=== PATIENT | female | born 1970 | race African-American/Black ===

== ENCOUNTER 2016-09-22 19:34 | Inpatient (IN) ==
[2016-09-22] MEDS ORDERED: PANTOPRAZOLE 40 MG VIAL IV STA (20:42)
[2016-09-22] MEDS ORDERED: ALUM/MAG/SIMETH/LIDO VISC 1:1 30 ML BOTTLE PO STA (20:42)
[2016-09-22] MEDS ORDERED: ASPIRIN 325 MG TABLET PO STA (20:42)
[2016-09-22] MEDS ORDERED: ONDANSETRON 4 MG/2 ML VIAL IV STA (20:42)
[2016-09-22] MEDS ORDERED: NITROGLYCERIN 2% OINT 1 INCH/GM PACK TOP STA (20:42)
[2016-09-22] MEDS ORDERED: PANTOPRAZOLE 40 MG VIAL IV ONE (20:48)
[2016-09-22] MEDS ORDERED: NITROGLYCERIN 2% OINT 1 INCH/GM PACK TOP ONE (20:48)
[2016-09-22 20:49] LABS: Basophils # 0.1 10*3/uL (0.0-0.2); Basophils % 0.5 % (0.0-0.8); Eosinophils # 0.1 10*3/uL (0.0-0.87); Eosinophils % 0.7 % (0.00-10.9); Hematocrit 43.6 VOL% (35.7-47.0); Hemoglobin 14.3 GM/DL (12.0-16.0); Immature Granulocytes % 0.8 %; Immature Granulocytes Absolute 0.09 #; Lymphocytes # 2.7 10*3/uL (1.4-4.0); Lymphocytes % 23.5 % (21.3-54.2); Mean Corpuscular HGB Conc 32.8 GM/DL (32-36); Mean Corpuscular Hemoglobin 35 PG (27-34); Mean Corpuscular Volume 107.9 FL (87-102); Mean Platelet Volume 11.2 FL (9.6-12.0); Monocytes # 0.9 10*3/uL (0.11-0.8); Monocytes % 7.8 % (1.7-12.7); Neutrophils # 7.7 10*3/uL (1.4-7.4); Neutrophils % 66.7 % (38.7-73.9); Platelet Count 256 T/CUMM (130-400); Red Blood Count 4.04 MC/CUMM (3.8-5.5); Red Cell Distribution Width 14.1 % (9.3-17.3); White Blood Count 11.5 T/CUMM (4-12)
[2016-09-22] MEDS ORDERED: ONDANSETRON 4 MG/2 ML VIAL ONE (20:49)
[2016-09-22] MEDS ORDERED: ALUM/MAG/SIMETH/LIDO VISC 1:1 30 ML BOTTLE PO ONE (20:49)
[2016-09-22] MEDS ORDERED: ASPIRIN 325 MG TABLET ONE (20:49)
[2016-09-22 20:54] LABS: INR 1.1; PT Patient Result 11.4 SECS
--- NOTE | 2016-09-22 21:02 | Emergency Department Note ---
IJohnson Emily, am scribing for, and in the presence of, Brian Quiroz MD 20: 51. IGabriella Charles R, MD, personally performed the services described in this documentation, ascribed by Loulou Ornelas in my presence, and it is both accurate and complete . Arrival - Arrival Chief Complaint: Chest Pain Stated Complaint: chest pain,sob ED Nursing Triage Note: Patient to triage with c/o CP and SOB since this morning before dialysis. Patient states the pain is located in her epigastric area and radiates up chest to her back and feels like indigestion but when the SOB started she got worried. Patient states she did get down to her dry weight today at dialysis and has taken tums and prilosec with no relief. Patient does not make urine anymore. Mode of Arrival: Wheelchair Limitations: No Limitations Source: Patient Time Seen by Provider: 09/22/16 20:17 - History of Present Illness HPI Narrative: Pt is a 46 y/o female who came to ED with c/o epigastric pain that started yesterday after eating a quarter pounder cheeseburger at 6pm. She notes taking a Prilosec 10mg (she nml takes daily for GERD), that gave no relief. When getting to dialysis this morning, then pain continued and was given 2 Tums, with no relief as well. Pt notes she became concerned when SOB started. Pt has associated sxs of burning in chest, bad taste in mouth, nausea, excessive belching but denies vomiting or swelling in lower extremities. Pt makes no urine. Onset (ago): day(s) Consistency: constant Severity: mild, moderate Severity scale (1-10): 4 Quality: aching, burning Date of Last Menstrual Period: "next week" Allergies/Adverse Reactions: Allergies Allergy/AdvReac Type Severity Reaction Status Date / Time morphine Allergy Mild Nausea Verified 09/22/16 19:54 Home Medications: Home Medications Medication Instructions Recorded Confirmed Type Zolpidem [Ambien] 5 mg PO BEDTIME PRN 06/16/15 09/22/16 History Albuterol Inhaler [Proventil 2 puff INH Q6H PRN #1 inhaler 11/23/15 09/22/16 Rx Inhaler] Amlodipine Besylate 5 mg PO QAM 01/25/16 09/22/16 History Atorvastatin [Lipitor] 10 mg PO QPM 01/25/16 09/22/16 History Phenytoin ER Cap [Dilantin Cap] 100 mg PO BEDTIME 02/01/16 09/22/16 History Calcium Acetate [Calcium Acetate] 1,334 mg PO BEDTIME 03/25/16 09/22/16 History Calcium Acetate [Calcium Acetate] 2,001 mg PO BID W/MEALS 03/25/16 09/22/16 History Calcium Carbonate/Vitamin D3 1 each PO QAM 04/29/16 09/22/16 History [Calcium 600-Vit D3 800 Tablet] Omeprazole 20 mg PO QPM 07/14/16 09/22/16 History Phenytoin ER Cap [Dilantin Cap] 100 mg PO TID #90 capsule 07/14/16 09/22/16 Rx Prorenal D 1 tablet PO QPM 07/14/16 09/22/16 History Sertraline HCl [Zoloft] 50 mg PO QAM 07/14/16 09/22/16 History Review of System - Review of System 12 point system: reviewed and no additional remarkable complaints except as stated - Review of System Constitutional: Absent: chills, fever Respiratory: Absent: respiratory distress Cardiovascular: Absent: chest pain, orthopnea, edema Gastrointestinal: Present: abdominal pain (epigastric), nausea, other (no urine output; excessive belching). Absent: vomiting Musculoskeletal: Absent: arm pain, leg pain, neck pain Skin: Absent: rash Neurological: Absent: headache Medical,Surgical,& Family Hx - Medical History Cardio: History of: CHF, Hypertension Neurology: History of: Brain Aneurysm (CLAMPED IN 2013), Migraine, Peripheral Neuropathy, Seizures Endocrine: No history of: Diabetes Mellitus (NIDDM) Rheumatology: History of;: Rheumatoid Arthritis Respiratory: History of: Asthma, Bronchitis, Obstructive Sleep Apnea (CPAP), Respiratory Problems (SHORTNESS OF BREATH) Renal: History of: Dialysis (, , sat), Renal Failure Gastrointestinal: History of: GERD Musculoskeletal: History of: Back/Neck Problems (LOWER BACK PAINS) Reproductive: History of: Complication (1 MISCARRIAGE) - Surgical History Neurologic Surgeries: Surgical HX of: Brain Aneurysm (CLAMPED IN 2013), Neurologic Surgery (aneurysm) HEENT Surgeries: Surgical HX of: Thyroid Surgery (2014) Abdominal Surgeries: Surgical HX of: Colonoscopy Reproductive Surgeries: Surgical HX of;: Tubal Ligation Orthopedic Surgeries: Surgical HX of;: Implanted Devices (CATHETER RIGHT SUBCLAVIAN, GRAFT RIGHT UPPER ARM) - Family History Family History: Reports;: Family Diabetes - Social History Smoking Status: Never smoker Frequency of Alcohol Use: None Type of Drug Use: None Functional capacity: independent ambulation Exam Vital Signs: Vital Signs Temperature 97.7 F 09/22/16 19:43 Pulse Rate 85 09/22/16 20:20 Respiratory Rate 18 09/22/16 20:20 Blood Pressure 67/49 09/22/16 19:43 O2 Sat by Pulse Oximetry 95 09/22/16 19:43 - General General appearance: alert, in no apparent distress - Head Head exam: Present: atraumatic, normocephalic - Eye Eye exam: Present: PERRL, EOMI - ENT ENT exam: Present: mucous membranes moist. Absent: mucous membranes dry - Neck Neck exam: Present: full ROM. Absent: tenderness - Chest Chest inspection: Present: symmetric chest wall rise. Absent: tenderness - Respiratory Respiratory exam: Present: normal lung sounds bilaterally. Absent: respiratory distress - Cardiovascular Cardiovascular exam: Present: regular rate, normal rhythm, normal heart sounds - Abdominal Exam Abdominal exam: Present: soft, tenderness (reproducible epigastric tenderness). Absent: distention, guarding, rebound - Extremities Exam Extremities exam: Present: full ROM, pedal edema (+1). Absent: tenderness - Neurological Exam Neurological exam: Present: alert, oriented X3, CN II-XII intact. Absent: motor sensory deficit - Psychiatric Psychiatric exam: Present: normal affect, normal mood - Skin Skin exam: Present: warm, dry Course Course Narrative: Pt was informed that her Prilosec 10mg dosage needs to be increased to 40mg, to help relieve her burning sensation. She was also instructed to stop eating fast food meals or fried for preventative measures to help keep her reflux under control. - Reevaluation(s) Reevaluation #1: Patient still having chest pain cardiac enzymes 2 are negative will admit her to the hospital for observation Time: 00:40 - Consultations Consultation #1: Hospitalist will admit patient Time: 00:40 Results - Labs CBC & BMP: 09/22/16 20:02 09/22/16 20:02 Lab Results: I have reviewed the patients labs Labs: Laboratory Tests 09/22/16 20:02 Sodium 133 L Chloride 91 L Anion Gap 16.8 H BUN 31 H Creatinine 7.50 H BUN/Creatinine Ratio 4.00 L Calculated Osmolality 272.4 L Calcium 10.2 H Total Protein 9.7 H Globulin 6.0 H Albumin/Globulin Ratio 0.6 L Laboratory Tests 09/22/16 20:02 B-Natriuretic Peptide 82 Laboratory Tests 09/22/16 22:38 Troponin I < 0.015 Disposition Clinical Impression: Atypical chest pain, Morbid obesity, ESRD (end stage renal disease) on dialysis Case discussed with: patient Disposition: Still a Patient Condition: Stable Time of Disposition: 00:40
[2016-09-22 21:03] LABS: Albumin 3.7 G/DL (3.4-5.0); Bilirubin,Total 0.5 MG/DL (0.2-1.0); Calcium 10.2 MG/DL (8.5-10.1); Magnesium 2.1 MG/DL (1.8-2.4); Osmolality,Calculated 272.4 MOS/KG (273-304); Potassium 3.8 MMOL/L (3.5-5.1); Total Protein 9.7 G/DL (6.4-8.3)
[2016-09-23] MEDS ORDERED: ALBUTEROL 2.5 MG/3 ML NEB RESP TX SCH (01:55)
[2016-09-23] MEDS ORDERED: NITROGLYCERIN SL 0.4 MG TABLET SL PRN (01:57)
--- NOTE | 2016-09-23 02:04 | Hospitalist History & Physical ---
Assessment and Plan (1) Atypical chest pain Status: Acute Assessment and plan: Patient has atypical chest pain more like like epigastric pain of GI origin I will start on Protonix. Due to her risk factors I will do check another troponin with morning labs. Will check repeat hemoglobin hematocrit also. Her lipase level was within normal limit Current Visit: Yes (2) ESRD on hemodialysis Status: Chronic Assessment and plan: Renal to be consulted and the patient stay in the hospital and required dialysis Current Visit: No (3) Epileptic seizure Status: Acute Assessment and plan: Continue phenytoin Current Visit: No (4) Hypertension Status: Chronic Assessment and plan: Although patient has history of hypertension, her blood pressure has been low here this could be due to nitroglycerin ointment or just because she had been getting bleeding from forearm blood pressure cuff. Patient otherwise awake alert and oriented. Will keep follow I will hold her home blood pressure medication. Also will remove nitroglycerin ointment. If the blood pressure is still low I will give some fluid patient is postdialysis and had 3 L ultrafiltration according to her Current Visit: No History of Present Illness Chief complaint: Epigastric pain History of present illness: Ms. Pruett is a 46 year old female with history of multiple medical problems including hypertension, end-stage renal disease, arthritis, sleep apnea not using CPAP at present asthma and obesity. She came to the ER with complaint of pain pointed out to the epigastric area started yesterday. She is on dialysis via left upper extremity AV fistula and on hemodialysis on Saturday and Saturday scheduled. She was dialyzed yesterday but pain started prior to her going to dialysis. The pain is in epigastric area and radiated to the chest associated with the shortness of breath. It felt like "reflux" she took omeprazole and Tums but did not relieve she came to the ER she was given nitroglycerin and also GI cocktail the pain improved. She denies any nausea vomiting diarrhea coughing fever or any other symptoms. She does have pain in left-sided lower abdominal wall due to "rising". In the ER she was also evaluated with the troponin level which was normal at 0.015 WBC count 11.5 and hemoglobin 14.3 hematocrit 43.6 I was called to admit the patient Home Medications Medication Instructions Recorded Confirmed Type Zolpidem [Ambien] 5 mg PO BEDTIME PRN 06/16/15 09/22/16 History Albuterol Inhaler [Proventil 2 puff INH Q6H PRN #1 inhaler 11/23/15 09/22/16 Rx Inhaler] Amlodipine Besylate 5 mg PO QAM 01/25/16 09/22/16 History Atorvastatin [Lipitor] 10 mg PO QPM 01/25/16 09/22/16 History Phenytoin ER Cap [Dilantin Cap] 100 mg PO BEDTIME 02/01/16 09/22/16 History Calcium Acetate [Calcium Acetate] 1,334 mg PO BEDTIME 03/25/16 09/22/16 History Calcium Acetate [Calcium Acetate] 2,001 mg PO BID W/MEALS 03/25/16 09/22/16 History Calcium Carbonate/Vitamin D3 1 each PO QAM 04/29/16 09/22/16 History [Calcium 600-Vit D3 800 Tablet] Omeprazole 20 mg PO QPM 07/14/16 09/22/16 History Phenytoin ER Cap [Dilantin Cap] 100 mg PO TID #90 capsule 07/14/16 09/22/16 Rx Prorenal D 1 tablet PO QPM 07/14/16 09/22/16 History Sertraline HCl [Zoloft] 50 mg PO QAM 07/14/16 09/22/16 History Allergies Allergy/AdvReac Type Severity Reaction Status Date / Time morphine Allergy Mild Nausea Verified 09/22/16 19:54 Medical,Surgical,& Family Hx - Medical History Cardio: History of: CHF, Hypertension Neurology: History of: Brain Aneurysm (CLAMPED IN 2013), Migraine, Peripheral Neuropathy, Seizures Endocrine: No history of: Diabetes Mellitus (NIDDM) Rheumatology: History of;: Rheumatoid Arthritis Respiratory: History of: Asthma, Bronchitis, Obstructive Sleep Apnea (CPAP), Respiratory Problems (SHORTNESS OF BREATH) Renal: History of: Dialysis (, , sat), Renal Failure Gastrointestinal: History of: GERD Musculoskeletal: History of: Back/Neck Problems (LOWER BACK PAINS) Reproductive: History of: Complication (1 MISCARRIAGE) - Surgical History Neurologic Surgeries: Surgical HX of: Brain Aneurysm (CLAMPED IN 2013), Neurologic Surgery (aneurysm) HEENT Surgeries: Surgical HX of: Thyroid Surgery (2014) Abdominal Surgeries: Surgical HX of: Colonoscopy Reproductive Surgeries: Surgical HX of;: Tubal Ligation Orthopedic Surgeries: Surgical HX of;: Implanted Devices (CATHETER RIGHT SUBCLAVIAN, GRAFT RIGHT UPPER ARM) - Family History Family History: Reports;: Family Diabetes - Social History Smoking Status: Never smoker Frequency of Alcohol Use: None Type of Drug Use: None 12 point system: reviewed and no additional remarkable complaints except as stated (Indicated in HPI) Exam - Constitutional Vitals: Period Temp Pulse Resp BP Sys/Dos Santos Pulse Ox Last 24 Hr 97.7 F-97.7 F 85-91 18-22 67-67/49-49 95 General appearance: no acute distress, morbidly obese - Head Head exam: Present: normal inspection, normocephalic, atraumatic - Eye Eye exam: Present: EOMI Pupils: Present: AMIRAH, normal accommodation - ENT ENT exam: Present: normal exam, normal oropharynx - Respiratory Respiratory exam: Present: clear to auscultation bilaterally. Absent: rales, rhonchi, wheezes - Cardiovascular Cardiovascular exam: Present: regular rate and rhythm. Absent: tachycardia - GI/Abdominal GI/Abdominal exam: Present: normal bowel sounds, soft, other. Absent: distended , tenderness - Neurological Exam Neurological exam: Present: alert, oriented X3 - Skin Skin exam: Present: other (This is boiled which is a has busted and has drainage left lower abdominal wall) Results - Labs CBC & BMP: 09/22/16 20:02 09/22/16 20:02 Lab Results: I have reviewed the past 24 hour labs
[2016-09-23 04:39] LABS: Albumin 3.3 G/DL (3.4-5.0); Bilirubin,Total 0.4 MG/DL (0.2-1.0); Calcium 9.3 MG/DL (8.5-10.1); Osmolality,Calculated 274.4 MOS/KG (273-304); Potassium 4.2 MMOL/L (3.5-5.1); Total Protein 8.5 G/DL (6.4-8.3)
--- NOTE | 2016-09-23 05:32 | EKG Report ---
Stationary ECG Study [facility] ER Test Date: 09/22/2016 7:45:18 PM Pat Name: SAHIL CARROLL Department: Room: 128 Gender: F Liquid Compounder: : 1970 Requested by: Brian Owen Order Number: [id number] Reading MD: CHANTEL MORAN Intervals [place] Rate: 88 P: 54 NV: 167 QRS: 1 QRSD: 62 T: 29 QT: 353 QTc: 399 Interpretive Statements SINUS RHYTHM LEFT ATRIAL ABNORMALITY ANTEROSEPTAL INFARCT, PREVIOUSLY CITED Electronically Signed On 09-23-16 16:11:32 CDT by CHANTEL MORAN [email or web address]
[2016-09-23 06:02] LABS: Basophils # 0.1 10*3/uL (0.0-0.2); Basophils % 0.7 % (0.0-0.8); Eosinophils # 0.1 10*3/uL (0.0-0.87); Eosinophils % 0.9 % (0.00-10.9); Hematocrit 39.5 VOL% (35.7-47.0); Hemoglobin 13.2 GM/DL (12.0-16.0); Immature Granulocytes % 0.6 %; Immature Granulocytes Absolute 0.05 #; Lymphocytes # 2.6 10*3/uL (1.4-4.0); Lymphocytes % 29.7 % (21.3-54.2); Mean Corpuscular HGB Conc 33.4 GM/DL (32-36); Mean Corpuscular Hemoglobin 36 PG (27-34); Mean Corpuscular Volume 108.5 FL (87-102); Mean Platelet Volume 10.5 FL (9.6-12.0); Monocytes # 0.8 10*3/uL (0.11-0.8); Monocytes % 9.7 % (1.7-12.7); Neutrophils # 5.1 10*3/uL (1.4-7.4); Neutrophils % 58.4 % (38.7-73.9); Platelet Count 217 T/CUMM (130-400); Red Blood Count 3.64 MC/CUMM (3.8-5.5); Red Cell Distribution Width 13.9 % (9.3-17.3); White Blood Count 8.7 T/CUMM (4-12)
[2016-09-23] MEDS: CLINDAMYCIN 150 MG CAPSULE PO SCH ×3 (06:55→21:54)
[2016-09-23] MEDS: ACETAMINOPHEN 325 MG TABLET PO PRN (06:55)
[2016-09-23] MEDS: ALBUTEROL 2.5 MG/3 ML NEB RESP TX SCH ×3 (07:45→19:46)
[2016-09-23] MEDS ORDERED: SODIUM CHLORIDE 0.9% 500 ML IV ONE ×2 (08:14→11:00)
[2016-09-23] MEDS: CALCIUM ACETATE 667 MG CAPSULE PO SCH ×2 (08:20→21:55)
--- NOTE | 2016-09-23 08:20 | Event Note ---
Chart reviewed and patient examined. 46-year-old black female with atypical chest pain who is hypertensive, has end-stage renal disease on hemodialysis, obesity, sleep apnea with noncompliance of CPAP. She remains relatively hypotensive with systolic blood pressures in the 80s. She is afebrile. Cardiovascular regular rate and rhythm. Lungs clear without rales rhonchi or wheeze. Abdomen is obese soft nontender. She does have a tender indurated area of the lower abdomen with minimal drainage. Extremities without clubbing cyanosis or edema. Patient is been admitted. Will give 500 cc fluid bolus and follow her blood pressures while holding her antihypertensive therapy at this time. Nephrology has been consulted. She has serial cardiac biomarkers which have been negative thus far and cardiology has been consulted as well. This is likely musculoskeletal in etiology and not cardiac in etiology. General surgery has been asked to evaluate lower abdominal wall abscess. She is on IV clindamycin at this time.
[2016-09-23] MEDS: ENOXAPARIN 30 MG/0.3 ML SYRINGE SUBCUT SCH (08:24)
[2016-09-23] MEDS: PANTOPRAZOLE 40 MG TABLET PO SCH (08:24)
[2016-09-23] MEDS: SERTRALINE 50 MG TABLET PO SCH (08:24)
[2016-09-23] MEDS ORDERED: PANTOPRAZOLE 40 MG VIAL IV SCH (09:00)
[2016-09-23] MEDS ORDERED: PHENYTOIN ER 100 MG CAPSULE PO SCH (09:00)
--- NOTE | 2016-09-23 09:08 | Event Note ---
Patient has a lower abdominal wall abscess. There is purulent drainage. It is difficult to assess the full extent of the abscess because of her morbid obesity. This needs drainage under anesthesia. Procedure and risk of been explained and she wishes to proceed. It is unclear if this is a source of her hypotension.
--- NOTE | 2016-09-23 09:44 | XRay Report ---
XR chest 1V portable Indication: Chest pain. Comparison: AP chest 09/20/2016. Technique: Portable AP chest was performed. Findings: Heart size is normal. Pulmonary vasculature appears within normal limits. No significant abnormality of the mediastinal contours demonstrated. Lungs are clear. Bones and soft tissues demonstrate no significant abnormalities. Impression: 1. No evidence of acute pathology. 09/23/2016 9:42 AM PROCEDURE INTERPRETED AT [facility] DEPARTMENT OF RADIOLOGY Final Report Signed by: Dr. Mo Hernandez
--- NOTE | 2016-09-23 12:04 | Cardiology Consult Note ---
History of Present Illness - Data of Consult Patient: new to practice Consult date: 09/23/16 - Consult Narrative History of present illness: Cardiology consult note 46-year-old woman with chronic renal failure admitted with abdominal wall abscess and hypotension. Blood pressure is 80 systolic and she is receiving fluids. Temperature is 97 and she has had no fever recorded. White count 11.5. Chest x-ray shows a normal heart size with no infiltrate or effusion. EKG shows normal sinus rhythm with late transition across precordium and ST-T wave changes. This tracing is unchanged from her previous tracing January 25, 2016. No history of exertional chest pain. The patient does have chronic dyspnea and easy fatigability. She is 5 feet 1 inches tall weighs 245 pounds. The patient has untreated obstructive sleep apnea. She has chronic renal failure and has been on hemodialysis since 2011. She is dialyzed at the [facility] [place] every Saturday and Saturday for 4 hours. The patient makes no urine. She has chronic hypertension takes amlodipine 5 mg daily. She takes atorvastatin for hyperlipidemia. Lifetime non-smoker and nondrinker. She does have a history of seizure disorder and takes Dilantin 400 mg daily. Her last seizure was 3 years ago. She does have GE reflux symptoms and takes Prilosec 20 mg daily. She tries to avoid bedtime snacks. Her mother has hypertension diabetes and is on hemodialysis at age 62. Father from alcoholism in his early 50s. Brother was killed in an MVA at age 12. She has 7 sisters, 3 of them have hypertension Lab data White count 11.5 hemoglobin 14.3 hematocrit 43.6 Platelet count 256,000 sodium 133 potassium 4.2 chloride 94 CO2 31 BUN 40 creatinine 8.30 glucose 86 magnesium 2.1 BNP 82 troponin negative 2. Blood pressure is 84/56 pulse is 86 and regular respirations 20 O2 sat is 97% 2 L early arcus no xanthelasma flat neck veins no carotid bruit decreased breath sounds but clear. rhythm is regular no murmur or gallop no chest wall tenderness to palpation at is morbidly obese. Femoral pulses 2+ and deep distal pulses 2+ no edema Impression Abdominal wall abscess with purulent drainage and hypotension. The patient is morbidly obese and the extent of the abscess cannot be delineated. Chronic renal failure on hemodialysis. She is dialyzed every Saturday and Saturday Untreated obstructive sleep apnea Chronic hypertension Seizure disorder on Dilantin. Last seizure was 3 years ago Lifetime non-smoker and nondrinker Morbid obesity 5 feet 1 inches tall 245 pounds No family history of premature CAD EKG shows sinus rhythm with late transition across her and ST-T wave changes, unchanged from previous tracing January 25, 2016. GE reflux Atypical chest pain not likely be ischemic Plan Normal saline hydration Echo Doppler now Incision and drainage by Dr. Marcano CC: Nikita Kingsley - Home Medications and Allergies Home Medications: Home Medications Medication Instructions Recorded Confirmed Type Zolpidem [Ambien] 5 mg PO BEDTIME PRN 06/16/15 09/22/16 History Albuterol Inhaler [Proventil 2 puff INH Q6H PRN #1 inhaler 11/23/15 09/22/16 Rx Inhaler] Amlodipine Besylate 5 mg PO QAM 01/25/16 09/22/16 History Atorvastatin [Lipitor] 10 mg PO QPM 01/25/16 09/22/16 History Phenytoin ER Cap [Dilantin Cap] 100 mg PO BEDTIME 02/01/16 09/22/16 History Calcium Acetate [Calcium Acetate] 1,334 mg PO BEDTIME 03/25/16 09/22/16 History Calcium Acetate [Calcium Acetate] 2,001 mg PO BID W/MEALS 03/25/16 09/22/16 History Calcium Carbonate/Vitamin D3 1 each PO QAM 04/29/16 09/22/16 History [Calcium 600-Vit D3 800 Tablet] Omeprazole 20 mg PO QPM 07/14/16 09/22/16 History Phenytoin ER Cap [Dilantin Cap] 100 mg PO TID #90 capsule 07/14/16 09/22/16 Rx Prorenal D 1 tablet PO QPM 07/14/16 09/22/16 History Sertraline HCl [Zoloft] 50 mg PO QAM 07/14/16 09/22/16 History Allergies/Adverse Reactions: Allergies Allergy/AdvReac Type Severity Reaction Status Date / Time morphine Allergy Mild Nausea Verified 09/22/16 19:54 Medical,Surgical,& Family Hx - Medical History Cardio: History of: CHF, Hypertension, Cardiovascular Problems (heart cath @ [facility] w/ stent ?) Neurology: History of: Brain Aneurysm (CLAMPED IN 2013), Migraine, Peripheral Neuropathy, Seizures Endocrine: No history of: Diabetes Mellitus (NIDDM) Rheumatology: History of;: Rheumatoid Arthritis Respiratory: History of: Asthma, Bronchitis, Obstructive Sleep Apnea (doesn't wear cpap as ordered), Respiratory Problems (SHORTNESS OF BREATH) Renal: History of: Dialysis (, , sat), Renal Failure (left upper arm fistula ) Gastrointestinal: History of: GERD Musculoskeletal: History of: Back/Neck Problems (LOWER BACK PAINS) Reproductive: History of: Complication (1 MISCARRIAGE) - Surgical History Cardiac Surgeries: Sugical HX of: Cardiac Catheterization (several years ago @ [facility]) Neurologic Surgeries: Surgical HX of: Brain Aneurysm (CLAMPED IN 2013), Neurologic Surgery (aneurysm) HEENT Surgeries: Surgical HX of: Thyroid Surgery (2014) Abdominal Surgeries: Surgical HX of: Colonoscopy Reproductive Surgeries: Surgical HX of;: Tubal Ligation Orthopedic Surgeries: Surgical HX of;: Implanted Devices (CATHETER RIGHT SUBCLAVIAN, GRAFT RIGHT UPPER ARM) - Family History Family History: Reports;: Family Diabetes (mom (DM & HD)), Family Hypertension ( mom) Denies;: Family Anesthesia Reaction, Family Cancer, Family Heart Disease, Family Hematology, Family Psychiatric Problems, Family Stroke, Additional Family History - Social History Smoking Status: Never smoker Frequency of Alcohol Use: None Type of Drug Use: None Physical Examination Vital Signs Temp Pulse Resp BP Pulse Ox 97.7 F 91 H 22 67/49 95 09/22/16 19:43 09/22/16 19:43 09/22/16 19:43 09/22/16 19:43 09/22/16 19:43 Result/EKG - Labs CBC & BMP: 09/23/16 05:56 09/23/16 03:59 Labs: Laboratory Results - last 24 hr 09/22/16 09/22/16 09/22/16 20:02 20:02 20:02 WBC RBC Hgb Hct MCV MCH MCHC RDW Plt Count MPV Neut % (Auto) Lymph % (Auto) [place] % (Auto) Eos % (Auto) Baso % (Auto) Neut # (Auto) Lymph # (Auto) [place] # (Auto) Eos # (Auto) Baso # (Auto) Immature Gran % Nucleated RBC % Immature Gran # Nucleated RBCs # Immature Plt Fraction INR 1.1 PT Patient/Control Mix 11.4 Sodium 133 L Potassium 3.8 Chloride 91 L Carbon Dioxide 29 Anion Gap 16.8 H BUN 31 H Creatinine 7.50 H GFR Calculation 8 BUN/Creatinine Ratio 4.00 L Glucose 93 Calculated Osmolality 272.4 L Calcium 10.2 H Magnesium 2.1 Total Bilirubin 0.50 AST 17 ALT 17 Alkaline Phosphatase 84 Troponin I < 0.015 B-Natriuretic Peptide Total Protein 9.7 H Albumin 3.7 Globulin 6.0 H Albumin/Globulin Ratio 0.6 L Lipase 330.0 09/22/16 09/22/16 09/22/16 20:02 20:02 22:38 WBC 11.5 D RBC 4.04 Hgb 14.3 Hct 43.6 MCV 107.9 H MCH 35 H MCHC 32.8 RDW 14.1 Plt Count 256 D MPV 11.2 Neut % (Auto) 66.7 Lymph % (Auto) 23.5 [place] % (Auto) 7.8 Eos % (Auto) 0.7 Baso % (Auto) 0.5 Neut # (Auto) 7.7 H Lymph # (Auto) 2.7 [place] # (Auto) 0.9 H Eos # (Auto) 0.1 Baso # (Auto) 0.1 Immature Gran % 0.8 Nucleated RBC % 0.0 Immature Gran # 0.09 Nucleated RBCs # 0.00 Immature Plt Fraction 0.0 INR PT Patient/Control Mix Sodium Potassium Chloride Carbon Dioxide Anion Gap BUN Creatinine GFR Calculation BUN/Creatinine Ratio Glucose Calculated Osmolality Calcium Magnesium Total Bilirubin AST ALT Alkaline Phosphatase Troponin I < 0.015 B-Natriuretic Peptide 82 Total Protein Albumin Globulin Albumin/Globulin Ratio Lipase 09/23/16 09/23/16 09/23/16 03:59 03:59 05:56 WBC 8.7 RBC 3.64 L Hgb 13.2 Hct 39.5 MCV 108.5 H MCH 36 H MCHC 33.4 RDW 13.9 Plt Count 217 MPV 10.5 Neut % (Auto) 58.4 Lymph % (Auto) 29.7 [place] % (Auto) 9.7 Eos % (Auto) 0.9 Baso % (Auto) 0.7 Neut # (Auto) 5.1 Lymph # (Auto) 2.6 [place] # (Auto) 0.8 Eos # (Auto) 0.1 Baso # (Auto) 0.1 Immature Gran % 0.6 Nucleated RBC % 0.0 Immature Gran # 0.05 Nucleated RBCs # 0.00 Immature Plt Fraction 0.0 INR PT Patient/Control Mix Sodium 133 L Potassium 4.2 Chloride 94 L Carbon Dioxide 31 Anion Gap 12.2 BUN 40 H Creatinine 8.30 H GFR Calculation 7 BUN/Creatinine Ratio 4.00 L Glucose 86 Calculated Osmolality 274.4 Calcium 9.3 Magnesium Total Bilirubin 0.40 AST 15 ALT 16 Alkaline Phosphatase 78 Troponin I < 0.015 B-Natriuretic Peptide Total Protein 8.5 H Albumin 3.3 L Globulin 5.2 H Albumin/Globulin Ratio 0.6 L Lipase
[2016-09-23] MEDS ORDERED: BUPIVACAINE 0.25% /EPI 10 ML VIAL ONE (12:55)
[2016-09-23] MEDS ORDERED: LIDOCAINE 1%/EPI INJ 20 ML VIAL ONE (12:55)
--- NOTE | 2016-09-23 13:23 | Operative Note ---
Date of procedure: 09/23/16 Pre-op diagnosis: Abdominal wall abscess Post-op diagnosis: same Procedure: Incision and drainage of complex subcutaneous abdominal wall lower midline abscess Findings and technique: After informed consent was obtained patient brought the operating room placed in supine position. After IV sedation was administered the patient's abdomen was prepped and draped in usual sterile fashion. Local anesthesia was infiltrated and a small transverse incision made over the area of fluctuance and the subcutaneous abscess entered. This was limited to the subcutaneous tissues just beneath the skin and went about 1.5 cm deep. This was digitally explored to break up any loculations and copiously irrigated and cultured. Wound was then packed open with iodoform gauze and sterile dressing applied. Anesthesia: MAC, local Surgeon / Physician: Richard Marcano III. Estimated blood loss: minimal Specimens: other (Cultures) Condition: stable Disposition: PACU Results - Labs CBC & BMP: 09/23/16 05:56 09/23/16 03:59 Discharge Plan - Discharge Medications No Action Zolpidem [Ambien] 5 mg PO BEDTIME PRN PRN Reason: Insomnia Albuterol Inhaler [Proventil Inhaler] 2 puff INH Q6H PRN #1 inhaler PRN Reason: Shortness Of Breath/Wheezing Atorvastatin [Lipitor] 10 mg PO QPM Amlodipine Besylate 5 mg PO QAM Calcium Acetate [Calcium Acetate] 2,001 mg PO BID W/MEALS Calcium Acetate [Calcium Acetate] 1,334 mg PO BEDTIME Sertraline HCl [Zoloft] 50 mg PO QAM Prorenal D 1 tablet PO QPM Phenytoin ER Cap [Dilantin Cap] 100 mg PO TID #90 capsule Phenytoin ER Cap [Dilantin Cap] 100 mg PO BEDTIME Calcium Carbonate/Vitamin D3 [Calcium 600-Vit D3 800 Tablet] 1 each PO QAM Omeprazole 20 mg PO QPM - Follow Up or Referral - Forms/Instructions
[2016-09-23] MEDS ORDERED: PROPOFOL 200 MG/20 ML VIAL IV ONE (13:37)
[2016-09-23] MEDS ORDERED: fentaNYL 100 MCG/2 ML VIAL ONE (13:38)
[2016-09-23] MEDS ORDERED: MIDAZOLAM 2 MG/2 ML VIAL ONE (13:38)
--- NOTE | 2016-09-23 13:52 | Nephrology Consult Note ---
History of Present Illness Chief complaint: ESRD History of present illness: Ms. Pruett is a 46 year old female admitted with atypical chest pain. She was noted to be hypotensive as well. However her mental status is normal and she states her systolic pressure frequently runs in the 70s and 80s. She has ESRD and was last dialyzed yesterday. She currently denies shortness of breath or chest pain. She reports a painful indurated area in the mid lower abdominal wall. She denies fever or chills. Home Medications Medication Instructions Recorded Confirmed Type Zolpidem [Ambien] 5 mg PO BEDTIME PRN 06/16/15 09/22/16 History Albuterol Inhaler [Proventil 2 puff INH Q6H PRN #1 inhaler 11/23/15 09/22/16 Rx Inhaler] Amlodipine Besylate 5 mg PO QAM 01/25/16 09/22/16 History Atorvastatin [Lipitor] 10 mg PO QPM 01/25/16 09/22/16 History Phenytoin ER Cap [Dilantin Cap] 100 mg PO BEDTIME 02/01/16 09/22/16 History Calcium Acetate [Calcium Acetate] 1,334 mg PO BEDTIME 03/25/16 09/22/16 History Calcium Acetate [Calcium Acetate] 2,001 mg PO BID W/MEALS 03/25/16 09/22/16 History Calcium Carbonate/Vitamin D3 1 each PO QAM 04/29/16 09/22/16 History [Calcium 600-Vit D3 800 Tablet] Omeprazole 20 mg PO QPM 07/14/16 09/22/16 History Phenytoin ER Cap [Dilantin Cap] 100 mg PO TID #90 capsule 07/14/16 09/22/16 Rx Prorenal D 1 tablet PO QPM 07/14/16 09/22/16 History Sertraline HCl [Zoloft] 50 mg PO QAM 07/14/16 09/22/16 History Allergies Allergy/AdvReac Type Severity Reaction Status Date / Time morphine Allergy Mild Nausea Verified 09/22/16 19:54 Medical,Surgical,& Family Hx - Medical History Cardio: History of: CHF, Hypertension, Cardiovascular Problems (heart cath @ [facility] w/ stent ?) Neurology: History of: Brain Aneurysm (CLAMPED IN 2013), Migraine, Peripheral Neuropathy, Seizures Endocrine: No history of: Diabetes Mellitus (NIDDM) Rheumatology: History of;: Rheumatoid Arthritis Respiratory: History of: Asthma, Bronchitis, Obstructive Sleep Apnea (doesn't wear cpap as ordered), Respiratory Problems (SHORTNESS OF BREATH) Renal: History of: Dialysis (, , sat), Renal Failure (left upper arm fistula ) Gastrointestinal: History of: GERD Musculoskeletal: History of: Back/Neck Problems (LOWER BACK PAINS) Reproductive: History of: Complication (1 MISCARRIAGE) - Surgical History Cardiac Surgeries: Sugical HX of: Cardiac Catheterization (several years ago @ [facility]) Neurologic Surgeries: Surgical HX of: Brain Aneurysm (CLAMPED IN 2013), Neurologic Surgery (aneurysm) HEENT Surgeries: Surgical HX of: Thyroid Surgery (2014) Abdominal Surgeries: Surgical HX of: Colonoscopy Reproductive Surgeries: Surgical HX of;: Tubal Ligation Orthopedic Surgeries: Surgical HX of;: Implanted Devices (CATHETER RIGHT SUBCLAVIAN, GRAFT RIGHT UPPER ARM) - Family History Family History: Reports;: Family Diabetes (mom (DM & HD)), Family Hypertension ( mom) Denies;: Family Anesthesia Reaction, Family Cancer, Family Heart Disease, Family Hematology, Family Psychiatric Problems, Family Stroke, Additional Family History - Social History Smoking Status: Never smoker Frequency of Alcohol Use: None Type of Drug Use: None Review of Systems 12 point system: reviewed and no additional remarkable complaints except as stated Exam - Vital Signs Vital signs: Period Temp Pulse Resp BP Sys/Dos Santos Pulse Ox Last 24 Hr 96.8 F-97.7 F 59-92 14-23 56-101/32-66 95-100 Exam: Gen.: Alert and oriented x3. ENT: Pupils equal round reactive to light. EOMs intact. Mucous membranes moist. Neck: Supple. No JVD or bruit. Cardiovascular: Regular rate and rhythm. No murmur rub or gallop Lungs: Clear Abdomen: Soft. Area of induration in the mid lower abdomen. There is purulent drainage present Extremities: Trace edema Results - Labs CBC & BMP: 09/23/16 05:56 09/23/16 03:59 Assessment and Plan (1) ESRD (end stage renal disease) on dialysis Status: Acute Assessment and plan: 46-year-old woman with: * ESRD. Dialysis TTS * hypotension. This is chronic. Mental status is normal. She is on midodrine * Abdominal wall abscess * Atypical chest pain * Seizure disorder Current Visit: Yes (2) Abdominal wall abscess Status: Acute Current Visit: Yes (3) Atypical chest pain Status: Acute Current Visit: Yes (4) Morbid obesity Status: Acute Current Visit: Yes (5) Seizure disorder Status: Acute Current Visit: No
--- NOTE | 2016-09-23 16:36 | Anesthesia Post-Op ---
Anesthesia Post OP - Post Ansesthetic Evaluation Patient seen in post op: Yes Resp: within normal limits CV: within normal limits Mental: within normal limits Temp: within normal limits [id number]: within normal limits Nausea and Vomiting: within normal limits Pain: within normal limits
--- NOTE | 2016-09-23 17:11 | ECHO Report ---
Maria Victoria Pruett Exam Date: 09/23/2016 12:17 Referring Physician: Technologist: Tracey Bernardo MELO Age: 46 Ht (in): 61 Wt (lb): 237 Gender: F Exam Location: [facility] Echo Indications: Chest pain, unspecified, Abdominal wall mass, Hypotension, DAWNA, Dyspnea, unspecified, Morbid (severe) obesity due to excess calories, Chronic kidney disease, unspecified BP: 100 / 66 HR: 67 Rhythm: Sinus Technical Quality: Technically difficult study IMPRESSIONS Left ventricular ejection fraction is estimated at 60 %. Grade I/IV diastolic dysfunction (abnormal relaxation filling pattern), normal to mildly elevated filling pressures. The right ventricle is normal in size and function. The right atrium is normal in size. The left atrium is mildly enlarged. Morphologically normal mitral valve. No mitral valve regurgitation. Mild aortic stenosis peak gradient 25-30. Trace aortic valve regurgitation. Mild tricuspid valve regurgitation. [id number]. Pulmonic valve not well visualized. Normal pericardium without effusion. Normal ascending aorta dimension. MEASUREMENTS (Male / Female) Normal Values 2D ECHO LV Diastolic Diameter PLAX 3.9 cm 4.2 - 5.9 / 3.9 - 5.3 cm LV Systolic Diameter PLAX 2.4 cm LV Fractional Shortening PLAX 39.0 % IVS Diastolic Thickness 0.8 cm 0.6 - 1.0 / 0.6 - 0.9 cm LVPW Diastolic Thickness 0.8 cm 0.6 - 1.0 / 0.6 - 0.9 cm RV Internal Dim ED PLAX 2.8 cm Aortic Root Diameter 3.0 cm LA Systolic Diameter LX 3.3 cm 3.0 - 4.0 / 2.7 - 3.8 cm DOPPLER TR Peak Velocity 239.0 cm/s TR Peak Gradient 22.8 mmHg FINDINGS Left Ventricle Grade I/IV diastolic dysfunction (abnormal relaxation filling pattern), normal to mildly elevated filling pressures. . Left ventricular ejection fraction is estimated at 60 %. Right Ventricle The right ventricle is normal in size and function. Right Atrium The right atrium is normal in size. Left Atrium The left atrium is mildly enlarged. Mitral Valve Morphologically normal mitral valve. No mitral valve regurgitation. Aortic Valve Trileaflet aortic valve. Mild aortic stenosis peak gradient 25-30.trace aortic valve regurgitation. Tricuspid Valve Morphologically normal tricuspid valve.mild tricuspid valve regurgitation. [id number]. Pulmonic Valve Pulmonic valve not well visualized. Pericardium Normal pericardium without effusion. Aorta Normal ascending aorta dimension. Heriberto Guillen (Electronically Signed) Final Date: 23 September 2016 17:10
[2016-09-23] MEDS ORDERED: CALCIUM ACETATE 667 MG CAPSULE PO SCH (21:00)
[2016-09-23] MEDS: MULTIVITAMIN (BEROCCA) TABLET PO SCH (21:53)
[2016-09-23] MEDS: ATORVASTATIN 10 MG TABLET PO SCH (21:53)
[2016-09-23] MEDS: PHENYTOIN ER 100 MG CAPSULE PO SCH (21:54)
[2016-09-24] MEDS: ALBUTEROL 2.5 MG/3 ML NEB RESP TX SCH ×4 (00:28→19:00)
[2016-09-24] MEDS: CLINDAMYCIN 150 MG CAPSULE PO SCH ×3 (06:12→22:00)
[2016-09-24] MEDS: CALCIUM ACETATE 667 MG CAPSULE PO SCH ×2 (07:51→16:16)
[2016-09-24] MEDS: ACETAMINOPHEN 325 MG TABLET PO PRN ×2 (07:51→21:35)
[2016-09-24] MEDS: SERTRALINE 50 MG TABLET PO SCH (08:37)
[2016-09-24] MEDS: ENOXAPARIN 30 MG/0.3 ML SYRINGE SUBCUT SCH (08:37)
[2016-09-24] MEDS: PANTOPRAZOLE 40 MG TABLET PO SCH ×2 (08:37→21:35)
--- NOTE | 2016-09-24 08:41 | Nephrology Progress Note ---
Nephrology - PN: Subj Interval history: Ms. Pruett is seen in follow-up of her end-stage renal disease. She dialyzes Saturday and did run this Saturday prior to admission. She came in because of substernal chest discomfort which was made worse by swallowing she said she relates it to eating a "quarter pounder from [employer] ". She says the pain is much improved. She underwent I&D of an abdominal wall abscess yesterday. Chest is clear she is eating well this morning. She still has a sensation of discomfort substernally but this does not have anginal quality. GI has been consulted to evaluate. Exam (PN)-Nephrology - Vital Signs Vital signs: Period Temp Pulse Resp BP Sys/Dos Santos Pulse Ox Last 24 Hr 96.1 F-97.0 F 62-76 14-27 56-127/33-68 94-100 - Lab 09/23/16 05:56 09/23/16 03:59 Most recent lab results Calcium 9.3 MG/DL (8.5-10.1) 09/23/16 03:59 Magnesium 2.1 MG/DL (1.8-2.4) 09/22/16 20:02
[2016-09-24] MEDS: ONDANSETRON 4 MG/2 ML VIAL IV PRN ×2 (08:50→16:17)
--- NOTE | 2016-09-24 10:21 | Gastrointestinal Consult Note ---
<Miriam Engle - Last Filed: 09/24/16 10:17> Assessment and Plan (1) Epigastric pain Status: Acute Assessment and plan: 09/24-sudden onset of epigastric pain radiating to her back on Saturday with reported dysphagia/food stuck in her throat postprandial. Complaints of nausea and increased GERD. Cardiology evaluation at this time noted to feel of noncardiac origin. History of stricture in the past. Last EGD noted as below. Abdominal ultrasound pending this morning. Consider tentative EGD tomorrow to further evaluate. Plan an addendum to follow by Dr. Palmer Current Visit: Yes History of Present Illness Chief complaint: Epigastric pain History of present illness: Ms. Pruett is a 46 year old female who was admitted to the hospital with onset of epigastric pain. Patient is a good historian therefore inflammation was obtained from patient interview as well as chart review. Patient has a prior history of hypertension, end-stage renal disease with dialysis, arthritis, and obesity. Patient states that she was in her usual state of health until Saturday afternoon. She states that she ate a big Mac from [employer] and was only able to eat a small portion of it due to felt like it became hung in her throat. Not long after this she had onset of some epigastric pain that radiated around to her back. She also reports having some mild nausea associated with this but denies any vomiting. Patient states that it felt a little better Saturday night however on Saturday she attempted to eat again and had the same onset of pain. At that time is when she decided to have further evaluation at the emergency room. Patient was evaluated by cardiology at that time and was felt that the pain was noncardiac origin. Patient does have a history of esophageal stricture in the past and was seen in [address] Palmer and underwent an EGD with findings of GERD as well as a stricture and she was dilated at that time. Patient states that this did not feel similar to what she experienced last year however states she does not recall having difficulty swallowing at that time. She does report some recent weight loss but states it is warranted and she has been trying to eat better. She has a history of GERD and does take Prilosec for this however states that on Saturday and Saturday her Prilosec nor did times help with any of her symptoms. She is also being seen by Dr. Jeet for abdominal wall abscess. She denies any NSAID use due to her kidney disease. Denies any melena or hematochezia. She did complain of some mild right upper quadrant tenderness at one-point and does report a family history of gallbladder disease in both of her sisters. She has an abdominal ultrasound pending this morning. Home Medications Medication Instructions Recorded Confirmed Type Zolpidem [Ambien] 5 mg PO BEDTIME PRN 06/16/15 09/24/16 History Albuterol Inhaler [Proventil 2 puff INH Q6H PRN #1 inhaler 11/23/15 09/24/16 Rx Inhaler] Amlodipine Besylate 5 mg PO QAM 01/25/16 09/24/16 History Atorvastatin [Lipitor] 10 mg PO QPM 01/25/16 09/24/16 History Phenytoin ER Cap [Dilantin Cap] 100 mg PO BEDTIME 02/01/16 09/24/16 History Calcium Acetate [Calcium Acetate] 2,001 mg PO BID W/MEALS 03/25/16 09/24/16 History Calcium Carbonate/Vitamin D3 1 each PO QAM 04/29/16 09/24/16 History [Calcium 600-Vit D3 800 Tablet] Omeprazole 20 mg PO QPM 07/14/16 09/24/16 History Prorenal D 1 tablet PO QPM 07/14/16 09/24/16 History Sertraline HCl [Zoloft] 50 mg PO QAM 07/14/16 09/24/16 History Allergies Allergy/AdvReac Type Severity Reaction Status Date / Time morphine Allergy Mild Nausea Verified 09/22/16 19:54 Medical,Surgical,& Family Hx - Medical History Cardio: History of: CHF, Hypertension, Cardiovascular Problems (heart cath @ [facility] w/ stent ?) Neurology: History of: Brain Aneurysm (CLAMPED IN 2013), Migraine, Peripheral Neuropathy, Seizures Endocrine: No history of: Diabetes Mellitus (NIDDM) Rheumatology: History of;: Rheumatoid Arthritis Respiratory: History of: Asthma, Bronchitis, Obstructive Sleep Apnea (doesn't wear cpap as ordered), Respiratory Problems (SHORTNESS OF BREATH) Renal: History of: Dialysis (, , sat), Renal Failure (left upper arm fistula ) Gastrointestinal: History of: GERD Musculoskeletal: History of: Back/Neck Problems (LOWER BACK PAINS) Reproductive: History of: Complication (1 MISCARRIAGE) - Surgical History Cardiac Surgeries: Sugical HX of: Cardiac Catheterization (several years ago @ [place]) Neurologic Surgeries: Surgical HX of: Brain Aneurysm (CLAMPED IN 2013), Neurologic Surgery (aneurysm) HEENT Surgeries: Surgical HX of: Thyroid Surgery (2015) Abdominal Surgeries: Surgical HX of: Colonoscopy Reproductive Surgeries: Surgical HX of;: Tubal Ligation Orthopedic Surgeries: Surgical HX of;: Implanted Devices (CATHETER RIGHT SUBCLAVIAN, GRAFT RIGHT UPPER ARM) - Family History Family History: Reports;: Family Diabetes (mom (DM & HD)), Family Hypertension ( mom) Denies;: Family Anesthesia Reaction, Family Cancer, Family Heart Disease, Family Hematology, Family Psychiatric Problems, Family Stroke, Additional Family History - Social History Smoking Status: Never smoker Frequency of Alcohol Use: None Type of Drug Use: None - Constitutional Constitutional: Present: as per HPI - EENT Eyes: Present: as per HPI Ears: Present: as per HPI Nose, mouth and throat: Present: as per HPI - Cardiovascular Cardiovascular: Present: as per HPI - Respiratory Respiratory: Present: as per HPI - Gastrointestinal Gastrointestinal: Present: as per HPI, abdominal pain (Epigastric pain), dyspepsia, dysphagia, heartburn, nausea - Genitourinary Genitourinary: Present: as per HPI - Musculoskeletal Musculoskeletal: Present: as per HPI, arthralgias - Neurological Neurological: Present: as per HPI - Psychiatric Psychiatric: Present: as per HPI - Endocrine Endocrine: Present: as per HPI - Hematologic/Lymphatic Hematologic/Lymphatic: Present: as per HPI Exam - Constitutional Vitals: Period Temp Pulse Resp BP Sys/Dos Santos Pulse Ox Last 24 Hr 96.1 F-97.0 F 62-81 13-27 57-127/33-78 94-100 General appearance: no acute distress, over weight - Head Head exam: Present: normal inspection, normocephalic - Eye Eye exam: Present: other (Lids and conjunctive are unremarkable). Absent: scleral icterus - ENT ENT exam: Present: normal exam, normal oropharynx - Neck Neck exam: Present: normal inspection - Respiratory Respiratory exam: Present: clear to auscultation bilaterally. Absent: rales, rhonchi, wheezes - Cardiovascular Cardiovascular exam: Present: regular rate and rhythm. Absent: diastolic murmur , JVD, systolic murmur - GI/Abdominal GI/Abdominal exam: Present: normal bowel sounds, soft. Absent: ascites, distended, mass, organomegaly, tenderness - Extremities Exam Extremities exam: Present: normal inspection, full ROM - Back Exam Back exam: Present: normal inspection - Neurological Exam Neurological exam: Present: alert, oriented X3 - Psychiatric Psychiatric exam: Present: normal affect, normal mood - Skin Skin exam: Present: normal color, warm, dry Results - Labs CBC & BMP: 09/23/16 05:56 09/23/16 03:59 Lab Results: I have reviewed the past 24 hour labs <Esau Palmer - Last Filed: 09/24/16 18:15> History of Present Illness History of present illness: Ms. Pruett is a 46 year old female Exam - Constitutional Vitals: Period Temp Pulse Resp BP Sys/Dos Santos Pulse Ox Last 24 Hr 96.1 F-98.0 F 63-81 13-27 57-136/33-78 94-100 Results - Labs CBC & BMP: 09/23/16 05:56 09/23/16 03:59
--- NOTE | 2016-09-24 12:38 | Hospitalist Progress Note ---
Assessment and Plan (1) Epigastric pain Status: Acute Assessment and plan: Concerned about esophageal stricture who has GI to see her, cont protonix bid, us of abdomen looking at her gallbladder Current Visit: Yes (2) Atypical chest pain Status: Acute Assessment and plan: Will ask GI to see, serial troponins negative Current Visit: Yes (3) Hypertension Status: Chronic Assessment and plan: controlled Current Visit: No (4) ESRD (end stage renal disease) on dialysis Status: Chronic Assessment and plan: Continue dialysis every Saturday and Saturday, last dialysis on Saturday Current Visit: Yes (5) Sleep apnea Status: Chronic Assessment and plan: CPAP at bedtime Current Visit: Yes Hospitalist: Subjective Interval history: Patient is doing well and being moved out of the CCU today. Her symptoms are most likely due to difficulty with things sticking when she swallows. Will ask GI to see her today. She also has a lot of problems with reflux and will check her gallbladder also Exam - Constitutional Vitals: Period Temp Pulse Resp BP Sys/Dos Santos Pulse Ox Last 24 Hr 96.1 F-97.0 F 62-81 13-27 57-127/33-78 94-100 Exam: Heart Rate-[RRR] Lungs-[CTAB] GI-[+bs soft, NT] Ext-[no edema] Neuro [Motor 5/5], [alert and oriented times 3] psych [normal mood and affect] General [no acute distress] Results - Labs CBC & BMP: 09/23/16 05:56 09/23/16 03:59 Lab Results: I have reviewed the past 24 hour labs - Diagnostic Findings Procedure: Ultrasound: report reviewed by me (Echocardiogram showed an EF of 60 % with diastolic dysfunction PAP of 35)
--- NOTE | 2016-09-24 13:58 | Cardiology Progress Note ---
Roberth Escalante Vanessa, RN, am scribing for, and in the presence of, Go Maynard MD 13:58. Assessment and Plan - Time spent with patient Time spent with patient: Greater than 30 minutes (1) Sepsis associated hypotension Status: Acute Assessment and plan: SEE PLAN OF CARE LISTED BELOW. Current Visit: No (2) Atypical chest pain Status: Acute Assessment and plan: SEE PLAN OF CARE LISTED BELOW. Current Visit: Yes (3) Abdominal wall abscess Status: Acute Assessment and plan: SEE PLAN OF CARE LISTED BELOW. Current Visit: Yes (4) ESRD (end stage renal disease) on dialysis Status: Chronic Assessment and plan: SEE PLAN OF CARE LISTED BELOW. Current Visit: Yes (5) Morbid obesity Status: Chronic Current Visit: Yes (6) Anemia Status: Acute Assessment and plan: SEE PLAN OF CARE LISTED BELOW. Current Visit: No (7) Hypertension Status: Chronic Assessment and plan: SEE PLAN OF CARE LISTED BELOW. Current Visit: No (8) Sleep apnea Status: Chronic Assessment and plan: SEE PLAN OF CARE LISTED BELOW. Current Visit: Yes Cardiology - PN: Subj Interval history: [employer]: DR. GROSSMAN (NEW) SUMMARY: Ms. Pruett is a very pleasant 46 year old black female with risk factors significant for: hypertension, dyslipidemia, morbid obesity. She has never been a smoker. Past medical history includes end stage renal disease with hemodialysis, untreated obstructive sleep apnea, seizure disorder, GERD. Patient was admitted to [facility] CCU on September 22 after presenting to the ER complaining of lower abdominal pain with onset earlier in the day. She also reported epigastric discomfort with radiation to the chest with associated shortness of breath. Patient was also slightly hypotensive with SBP in the 60s. Patient reported her normal SBP was 70s-80s. Examination revealed lower mid abdominal wall abscess with purulent drainage. She was taken to OR for I&D of abscess on September [address] Jeet GRANT. Patient was monitored closely in unit overnight. Echocardiogram on September 23 with normal LV systolic function, EF 60% , mild diastolic dysfunction, mild and pulmonary HTN with PA pressure 35 mmHg. August: Patient seen and examined in CCU. She is awake and alert. Patient reports continued epigastric discomfort described as indigestion. Lower abdominal slightly tender, surgical dressing dry/intact. Appetite this morning is excellent with no N/V. BP 101/57. Sinus rhythm, pulse rate 70s, no disturbance. EKG has been negative for acute ischemic finding. Gastroenterolgy consult is pending. Patient is transferring to private room on floor later today. Labs reviewed. Cell counts unremarkable. ASSESSMENT/PLAN: 1. ATYPICAL CHEST PAIN - Noncardiac. Workup has been negative for findings of ACS. Gastroenterolgy has been consulted also to evaluate for possible stricture. DVT prophylaxis in place. 2. HYPOTENSION - Improved today. Has not required vasopressor for support. Monitor closely. 3. HYPERTENSION - Chronic. Stable at this time. Patient presented with hypotension, and Norvasc has been held. Monitor closely. Reintroduce antihypertensive medication as indicated. 4. ESRD WITH HEMODIALYIS - Continue routine hemodialyis per nephrology recommendations. 5. UNTREATED SLEEP APNEA - Noncompliant with CPAP. Reinforced necessity of compliance with CPAP regimen. 6. SEIZURE DISORDER - Phenytoin continued. 7. GERD - Continue PPI. 8. ANEMIA - Stable. Monitor cell counts closely. 9. ABDOMINAL WALL ABSCESS - Status post I&D of abd abscess on September 23. Preliminary cultures negative. Appropriate antibiotics have been started. 10. MORBID OBESITY - Caloric intake restriction & dietary counseling. I agree with the pain is atypical and likely related to a GI etiology. She is comfortable without complaints of shortness of breath. Her vital signs are stable and our plan will be to sign off. Please consult again if needed. I have discussed in detail the particulars of this case and I have examined the patient and reviewed the patient's chart both current and old. I was directly involved in the patient's evaluation and management and I completely agree with Nellie Lepe RN regarding this patient's evaluation and treatment plan. Exam (Progress Note) - Constitutional Vitals: Period Temp Pulse Resp BP Sys/Dos Santos Pulse Ox Last 24 Hr 96.1 F-97.0 F 62-76 14-27 56-127/33-68 94-100 Result/EKG - Labs CBC & BMP: 09/23/16 05:56 09/23/16 03:59 Lab Results: I have reviewed the past 24 hour labs - EKG EKG results: interpreted by me, no acute changes EKG shows: sinus rhythm I, Go Maynard MD, personally performed the services described in this documentation, ascribed by Nellie Lepe, PARVIN in my presence, and it is both accurate and complete .
[2016-09-24] MEDS ORDERED: MORPHINE 2 MG/1 ML SYRINGE IV ONE (14:49)
[2016-09-24] MEDS: CHLORHEXIDINE 4% SOLN 118 ML BOTTLE TOP SCH (16:16)
[2016-09-24] MEDS: SODIUM HYPOCHLORITE 0.25% IRRIG 473 ML BOTTLE TOP SCH (16:16)
--- NOTE | 2016-09-24 17:14 | Ultrasound Report ---
US abdomen Indication: "Gallbladder dysfunction" ULTRASOUND ABDOMEN, COMPLETE Comparison: None Findings: Liver: Unremarkable Gallbladder: Unremarkable Common bile duct: 3 mm Aorta: Normal size IVC: Patent Spleen: Unremarkable Pancreas: Unremarkable Right kidney: 6.7 cm length. No mass, calcification or obstruction. Multiple renal cysts are present, largest 19 mm. Left kidney: 6.1 cm length. No mass, cyst, calcification or obstruction Impression: Right renal cysts. Otherwise negative exam. PROCEDURE INTERPRETED AT [facility] DEPARTMENT OF RADIOLOGY Final Report Signed by: Fili Mccormack M.D.
[2016-09-24] MEDS: PHENYTOIN ER 100 MG CAPSULE PO SCH (21:34)
[2016-09-24] MEDS: MULTIVITAMIN (BEROCCA) TABLET PO SCH (21:34)
[2016-09-24] MEDS: ZALEPLON 5 MG CAPSULE PO PRN (21:34)
[2016-09-24] MEDS: ATORVASTATIN 10 MG TABLET PO SCH (21:35)
[2016-09-25] MEDS: ALBUTEROL 2.5 MG/3 ML NEB RESP TX SCH ×4 (00:14→20:48)
[2016-09-25] MEDS: CLINDAMYCIN 150 MG CAPSULE PO SCH ×3 (06:24→21:17)
[2016-09-25 06:58] LABS: Basophils % 0.1 % (0.0-0.8); Eosinophils # 0.3 10*3/uL (0.0-0.87); Eosinophils % 3.4 % (0.00-10.9); Hemoglobin 11.9 GM/DL (12.0-16.0); Immature Granulocytes % 0.5 %; Immature Granulocytes Absolute 0.04 #; Lymphocytes # 2.4 10*3/uL (1.4-4.0); Lymphocytes % 33.4 % (21.3-54.2); Mean Corpuscular HGB Conc 32.2 GM/DL (32-36); Mean Corpuscular Hemoglobin 35 PG (27-34); Mean Corpuscular Volume 108.2 FL (87-102); Monocytes # 0.5 10*3/uL (0.11-0.8); Neutrophils % 55.6 % (38.7-73.9); Platelet Count 243 T/CUMM (130-400); Red Blood Count 3.42 MC/CUMM (3.8-5.5); Red Cell Distribution Width 13.9 % (9.3-17.3); White Blood Count 7.3 T/CUMM (4-12)
[2016-09-25 07:26] LABS: Calcium 7.7 MG/DL (8.5-10.1); Magnesium 2.6 MG/DL (1.8-2.4); Osmolality,Calculated 289.2 MOS/KG (273-304); Potassium 4.4 MMOL/L (3.5-5.1)
[2016-09-25] MEDS: PANTOPRAZOLE 40 MG TABLET PO SCH ×2 (08:40→20:25)
[2016-09-25] MEDS: SERTRALINE 50 MG TABLET PO SCH (08:40)
[2016-09-25] MEDS: CALCIUM ACETATE 667 MG CAPSULE PO SCH ×2 (08:40→16:01)
[2016-09-25] MEDS ORDERED: LIDOCAINE 1% 5 ML VIAL ONE (12:01)
[2016-09-25] MEDS ORDERED: PROPOFOL 200 MG/20 ML VIAL IV ONE (12:01)
--- NOTE | 2016-09-25 12:01 | History and Physical Update ---
History and Physical Update - Physical Exam Mental Status: alert and oriented Heart: regular rate and rhythm Lung: clear to auscultation Abdomen: within normal limits Vitals: within normal limits
--- NOTE | 2016-09-25 12:09 | Operative Note ---
Date of procedure: 09/25/16 Pre-op diagnosis: Coffee-ground emesis with severe anemia Procedure: EGD 46-year-old black female was admitted with severe anemia acute DVT coffee- ground emesis now for upper endoscopy to further evaluate. Informed consent was obtained the patient She was sedated with MAC anesthesia per anesthesia protocol. Patient placed in left lateral decubitus position the Olympus flexible video upper endoscope was inserted into the oral cavity under direct vision the esophagus was intubated. Findings: Esophagus-normal proximal mid esophageal mucosa distal esophagus with moderate hiatal hernia mild esophagitis is present. No stricture no varices no Sumner' s was identified. Stomach-normal insufflation normal mucosa to direct retroflexed views of the body, fundus, cardia and antrum of the stomach. No site of bleeding or unified. Pylorus-normal Duodenum-superficial ulceration posterior bulb duodenum no visible vessel no active bleeding. Remaining duodenum is normal to the third portion of the duodenum. The procedure terminated placed our procedure well she is discharged recovery in good condition. Postop diagnosis: 1. Superficial duodenal ulcer no evidence of significant bleeding and I do not think this explains her severe anemia. Continue PPI 2. Gastroesophageal reflux disease-continue PPI treatment 3. Esophagitis-continue PPI treatment and antireflux precautions. 4. Colonoscopy in a.m. for further evaluation of her severe anemia. Anesthesia: MAC Surgeon / Physician: Esau Palmer Estimated blood loss: none Specimens: none sent Condition: stable Disposition: post procedure unit Results - Labs CBC & BMP: 09/25/16 04:31 09/25/16 04:31 Discharge Plan - Discharge Medications No Action Zolpidem [Ambien] 5 mg PO BEDTIME PRN PRN Reason: Insomnia Albuterol Inhaler [Proventil Inhaler] 2 puff INH Q6H PRN #1 inhaler PRN Reason: Shortness Of Breath/Wheezing Atorvastatin [Lipitor] 10 mg PO QPM Amlodipine Besylate 5 mg PO QAM Calcium Acetate [Calcium Acetate] 2,001 mg PO BID W/MEALS Sertraline HCl [Zoloft] 50 mg PO QAM Prorenal D 1 tablet PO QPM Phenytoin ER Cap [Dilantin Cap] 100 mg PO BEDTIME Calcium Carbonate/Vitamin D3 [Calcium 600-Vit D3 800 Tablet] 1 each PO QAM Omeprazole 20 mg PO QPM - Follow Up or Referral - Forms/Instructions
[2016-09-25] MEDS: SODIUM HYPOCHLORITE 0.25% IRRIG 473 ML BOTTLE TOP SCH (12:13)
[2016-09-25] MEDS: CHLORHEXIDINE 4% SOLN 118 ML BOTTLE TOP SCH (12:13)
--- NOTE | 2016-09-25 12:17 | Operative Note ---
Date of procedure: 09/25/16 Pre-op diagnosis: Atypical chest pain and dysphagia Procedure: EGD with dilatation 46-year-old female admitted with atypical chest pain felt to be noncardiac complaints of dysphagia now for EGD. Informed consent was obtained from the patient She was sedated with MAC anesthesia per anesthesia protocol. Patient was placed in left lateral decubitus position the Olympus flexible video upper endoscope was inserted in the oral cavity under direct vision the esophagus was intubated. Findings: Esophagus normal proximal mid esophageal mucosa distal esophagus with moderate hiatal hernia distal esophageal stricture and mild esophagitis. No Sumner's or varices were identified. Stomach-normal insufflation normal mucosa to direct and retroflexed views. Pylorus-normal Duodenum-superficial posterior bulb ulceration no visible vessel no active bleeding. Remaining duodenum is normal to the third portion of The procedure was terminated subsequently scope was removed and a 54 [place] bougie was passed without difficulty. Patient our procedure well she is discharged recovery in good condition. Postop diagnosis: 1. Gastroesophageal reflux disease-continue PPI treatment 2. Esophageal stricture repeat dilatation on as-needed basis 3. Esophagitis continue PPI treatment #4 superficial duodenal ulcer-continue PPI treatment. Check stool for H. pylori. Anesthesia: MAC Surgeon / Physician: Esau Palmer Estimated blood loss: none Specimens: none sent Condition: stable Disposition: post procedure unit Results - Labs CBC & BMP: 09/25/16 04:31 09/25/16 04:31 Discharge Plan - Discharge Medications No Action Zolpidem [Ambien] 5 mg PO BEDTIME PRN PRN Reason: Insomnia Albuterol Inhaler [Proventil Inhaler] 2 puff INH Q6H PRN #1 inhaler PRN Reason: Shortness Of Breath/Wheezing Atorvastatin [Lipitor] 10 mg PO QPM Amlodipine Besylate 5 mg PO QAM Calcium Acetate [Calcium Acetate] 2,001 mg PO BID W/MEALS Sertraline HCl [Zoloft] 50 mg PO QAM Prorenal D 1 tablet PO QPM Phenytoin ER Cap [Dilantin Cap] 100 mg PO BEDTIME Calcium Carbonate/Vitamin D3 [Calcium 600-Vit D3 800 Tablet] 1 each PO QAM Omeprazole 20 mg PO QPM - Follow Up or Referral - Forms/Instructions
--- NOTE | 2016-09-25 12:19 | Nephrology Progress Note ---
Nephrology - PN: Subj Interval history: Ms. Pruett is seen in follow-up of her end-stage renal disease. She seen in the endoscopy lab and is tolerated endoscopy well. Today is her usual hemodialysis today and will dialyze her upon completion of endoscopy. Exam (PN)-Nephrology - Vital Signs Vital signs: Period Temp Pulse Resp BP Sys/Dos Santos Pulse Ox Last 24 Hr 97.0 F-98.6 F 60-77 16-20 83-110/38-80 97-100 - Lab 09/25/16 04:31 09/25/16 04:31 Most recent lab results Calcium 7.7 MG/DL (8.5-10.1) L 09/25/16 04:31 Magnesium 2.6 MG/DL (1.8-2.4) H 09/25/16 04:31
--- NOTE | 2016-09-25 12:41 | Anesthesia Post-Op ---
Anesthesia Post OP - Post Ansesthetic Evaluation Patient seen in post op: Yes Resp: within normal limits CV: within normal limits Mental: within normal limits Temp: within normal limits [id number]: within normal limits Nausea and Vomiting: within normal limits Pain: within normal limits
--- NOTE | 2016-09-25 14:34 | Nephrology Progress Note ---
Nephrology - PN: Subj Interval history: Patient seen on hemodialysis today, her systolic blood pressures around 108 she is initially penciled in have about 3 L of fluid removed we are going to decrease her pull. Patient is without complaints will continue dialysis support. Exam (PN)-Nephrology - Vital Signs Vital signs: Period Temp Pulse Resp BP Sys/Dos Santos Pulse Ox Last 24 Hr 97.1 F-98.6 F 60-77 15-20 83-110/38-80 95-100 - Lab 09/25/16 04:31 09/25/16 04:31 Most recent lab results Calcium 7.7 MG/DL (8.5-10.1) L 09/25/16 04:31 Magnesium 2.6 MG/DL (1.8-2.4) H 09/25/16 04:31
--- NOTE | 2016-09-25 14:44 | Hospitalist Progress Note ---
Assessment and Plan (1) Esophagitis Status: Acute Assessment and plan: 1)esophagitis and DU- PPI, hpylori pending 2)ESRD on HD 3)abscess- antibiotics, local care 4)morbid obesity Current Visit: Yes (2) Duodenal ulcer Status: Acute Current Visit: Yes (3) Morbid obesity Status: Chronic Current Visit: Yes (4) ESRD on hemodialysis Status: Chronic Current Visit: No (5) Atypical chest pain Status: Acute Current Visit: Yes (6) Abdominal wall abscess Status: Acute Current Visit: Yes Hospitalist: Subjective Interval history: Mrs Pruett was seen on HD. She is feeling fine and does not have chest pain. She is hungry. She has had EGD this morning. She has also had I&D of her abdominal abscess yesterday. Her BP has been stable. Exam - Constitutional Vitals: Period Temp Pulse Resp BP Sys/Dos Santos Pulse Ox Last 24 Hr 97.1 F-98.6 F 60-77 15-20 83-110/38-80 95-100 General appearance: no acute distress, morbidly obese - Eye Eye exam: Present: EOMI. Absent: scleral icterus - Respiratory Respiratory exam: Present: clear to auscultation bilaterally - Cardiovascular Cardiovascular exam: Present: regular rate and rhythm - GI/Abdominal GI/Abdominal exam: Present: normal bowel sounds, soft - Extremities Exam Extremities exam: Absent: edema Results - Labs CBC & BMP: 09/25/16 04:31 09/25/16 04:31 Lab Results: I have reviewed the past 24 hour labs
[2016-09-25] MEDS: ACETAMINOPHEN 325 MG TABLET PO PRN (20:24)
[2016-09-25] MEDS: ZALEPLON 5 MG CAPSULE PO PRN (20:24)
[2016-09-25] MEDS: ATORVASTATIN 10 MG TABLET PO SCH (20:25)
[2016-09-25] MEDS: PHENYTOIN ER 100 MG CAPSULE PO SCH (20:25)
[2016-09-25] MEDS: MULTIVITAMIN (BEROCCA) TABLET PO SCH (20:25)
[2016-09-26] MEDS: ALBUTEROL 2.5 MG/3 ML NEB RESP TX SCH ×3 (00:41→13:32)
[2016-09-26] MEDS: CLINDAMYCIN 150 MG CAPSULE PO SCH ×2 (05:15→14:12)
[2016-09-26] MEDS: SERTRALINE 50 MG TABLET PO SCH (08:21)
[2016-09-26] MEDS: PANTOPRAZOLE 40 MG TABLET PO SCH (08:21)
[2016-09-26] MEDS: CALCIUM ACETATE 667 MG CAPSULE PO SCH (08:21)
[2016-09-26] MEDS: CHLORHEXIDINE 4% SOLN 118 ML BOTTLE TOP SCH (08:22)
[2016-09-26] MEDS: SODIUM HYPOCHLORITE 0.25% IRRIG 473 ML BOTTLE TOP SCH (08:22)
--- NOTE | 2016-09-26 08:35 | Gastrointestinal Progress Note ---
<Miriam Engle - Last Filed: 09/26/16 08:33> Assessment and Plan (1) Epigastric pain Status: Acute Assessment and plan: 09/26-EGD findings noted with GERD, esophageal stricture, post dilation, esophagitis and duodenal ulcer. Stools pending for H. pylori. Dysphagia is improved. Plan and addendum to followed by Dr. Palmer. 09/24-sudden onset of epigastric pain radiating to her back on Saturday with reported dysphagia/food stuck in her throat postprandial. Complaints of nausea and increased GERD. Cardiology evaluation at this time noted to feel of noncardiac origin. History of stricture in the past. Last EGD noted as below. Abdominal ultrasound pending this morning. Consider tentative EGD tomorrow to further evaluate. Plan an addendum to follow by Dr. Palmer Gastroenterology - PN: Subj Interval history: CC: Atypical chest pain, dysphagia Patient is seen, awake and alert sitting up in bed. States she had an uneventful night and rested well. She is complaining of some mild abdominal cramping this morning however she took her oral antibiotics on an empty stomach and contributes it to this. She denies any nausea or vomiting. States that her swallowing is improved since dilation on yesterday. Her stools are pending for H. pylori at this time. Abdomen is soft, nontender. ROS: Denies shortness of breath or chest pain Exam (Progress Note) - Constitutional Vitals: Period Temp Pulse Resp BP Sys/Dos Santos Pulse Ox Last 24 Hr 96.4 F-97.8 F 63-79 15-20 83-128/45-64 95-100 General appearance: no acute distress, over weight - Head Head exam: Present: normal inspection, normocephalic - Eye Eye exam: Present: other (Lids and conjunctivae are unremarkable). Absent: scleral icterus - ENT ENT exam: Present: normal exam, normal oropharynx - Neck Neck exam: Present: normal inspection - Respiratory Respiratory exam: Present: clear to auscultation bilaterally. Absent: rales, rhonchi, wheezes - Cardiovascular Cardiovascular exam: Present: regular rate and rhythm. Absent: diastolic murmur , JVD, systolic murmur - GI/Abdominal GI/Abdominal exam: Present: normal bowel sounds, soft. Absent: ascites, distended, mass, organomegaly, tenderness - Extremities Exam Extremities exam: Present: normal inspection, full ROM - Back Exam Back exam: Present: normal inspection - Neurological Exam Neurological exam: Present: alert, oriented X3 - Psychiatric Psychiatric exam: Present: normal affect, normal mood - Skin Skin exam: Present: normal color, warm, dry Results - Labs CBC & BMP: 09/25/16 04:31 09/25/16 04:31 Lab Results: I have reviewed the past 24 hour labs Specialty Discharge - Follow Up or Referrals Follow up with: Your, PCP [Other] (1 week) Esau Palmer MD [Physician] - 11/01/16 2:30 pm Richard Marcano III., MD [Physician] - 10/08/16 10:45 am <Esau Palmer - Last Filed: 09/26/16 19:44> Exam (Progress Note) - Constitutional Vitals: Period Temp Pulse Resp BP Sys/Dos Santos Pulse Ox Last 24 Hr 96.4 F-98.3 F 64-79 16-20 88-128/45-62 96-100 Results - Labs CBC & BMP: 09/25/16 04:31 09/25/16 04:31
[2016-09-26] MEDS: ONDANSETRON 4 MG/2 ML VIAL IV PRN (09:25)
[2016-09-26] MEDS: ACETAMINOPHEN 325 MG TABLET PO PRN (09:25)
--- NOTE | 2016-09-26 10:09 | Discharge Summary ---
Hospital Course - Hospital Course Hospital Course: Mrs Pruett came with abdominal abscess and chest pain. She had I&D of wound and it has been packed. She will follow up with DR Jeet GRANT for this in clinic in a week. She will take Bactrim DS BID for a week instead of the clinda because her wound culture grew Staph auricularis which was resistant to the clinda. Her chest pain was GI in origin. Ryan did EGD that showed small DU and esophagitis and she will continue to take PPI BID. Mrs Pruett is feeling good today. She has been taught how to pack her wound and home health will come out ot show her sister too. She will resume her usual dialysis schedule. She will also see her PCP in a week or so. - Time spent with patient Time with patient DS: Greater than 30 minutes (32 minutes spent in dicharge planning, education, documentation, medicine reconciliation.) Diagnosis - Discharge Diagnosis (1) Esophagitis Status: Acute (2) Duodenal ulcer Status: Acute (3) Morbid obesity Status: Chronic (4) ESRD on hemodialysis Status: Chronic (5) Atypical chest pain Status: Resolved (6) Abdominal wall abscess Status: Resolved Specialty Discharge - Follow Up or Referrals Follow up with: Your, PCP [Other] (1 week) Esau Palmer MD [Physician] - 11/01/16 2:30 pm Richard Marcano III., MD [Physician] - 10/08/16 10:45 am Discharge Plan - Discharge Data Disposition: Disch To Home/Self Care Condition at Discharge: Stable Discharge Diet: diabetic diet, heart healthy Activity: resume usual activities as tolerated, other (wound care as ordered by Dr Marcano) - Discharge Medications New Chlorhexidine 4% Soln [Hibiclens] 1 applic TOP DAILY applic Clindamycin Cap [Cleocin Cap] 450 mg PO Q8HR #20 capsule Pantoprazole Tab [Protonix Tab] 40 mg PO BID #60 tablet Continue Zolpidem [Ambien] 5 mg PO BEDTIME PRN PRN Reason: Insomnia Albuterol Inhaler [Proventil Inhaler] 2 puff INH Q6H PRN #1 inhaler PRN Reason: Shortness Of Breath/Wheezing Atorvastatin [Lipitor] 10 mg PO QPM Amlodipine Besylate 5 mg PO QAM Calcium Acetate 2,001 mg PO BID W/MEALS Sertraline HCl [Zoloft] 50 mg PO QAM Prorenal D 1 tablet PO QPM Phenytoin ER Cap [Dilantin Cap] 100 mg PO BEDTIME Calcium Carbonate/Vitamin D3 [Calcium 600-Vit D3 800 Tablet] 1 each PO QAM Discontinued Omeprazole 20 mg PO QPM - Follow Up or Referral Follow Up: Your, PCP [Other] (1 week) Esau Palmer MD [Physician] - 11/01/16 2:30 pm Richard Marcano III., MD [Physician] - 10/08/16 10:45 am - Forms/Instructions Instructions: Clindamycin (By mouth), Pantoprazole (By mouth), Chest Pain (DC) , End-Stage Kidney Disease (DC) Exam - Constitutional Vitals: Period Temp Pulse Resp BP Sys/Dos Santos Pulse Ox Last 24 Hr 96.4 F-97.8 F 63-79 15-20 83-128/45-64 95-100 General appearance: no acute distress, morbidly obese - Head Head exam: Present: normocephalic, atraumatic - Eye Eye exam: Present: EOMI. Absent: scleral icterus - Respiratory Respiratory exam: Present: clear to auscultation bilaterally - Cardiovascular Cardiovascular exam: Present: regular rate and rhythm - GI/Abdominal GI/Abdominal exam: Present: normal bowel sounds, soft. Absent: tenderness - Extremities Exam Extremities exam: Absent: edema Discharge Results Procedures and tests throughout hospitalization: Pending Orders 09/23/16 13:10 Abscess Culture Routine Anaerobic Culture Routine 09/25/16 15:24 Helicobacter pylori Ag Feces Routine Labs on day of discharge: Preliminary micro results at discharge 09/23/16 13:10 Abscess Culture - Preliminary Abdomen - Abscess Gram Positive Cocci DS: Provider Date of admission: 09/23/16 01:50 Primary care physician: LILLIAM HOWARD NP Attending physician on admission: Aj Patel MD Consults: 09/23/16 08:13 Consult to Physician [CONS] Routine Comment: ESRD Consulting Provider: Fili Ayala Consult Notification Comment: md morrissey Consult to Physician [CONS] Routine Comment: atypical CP, hypotension Consulting Provider: Cardiology - [facility] Consult Notification Comment: peter saw 09/23/16 08:14 Consult to Physician [CONS] Routine Comment: abscess Consulting Provider: Richard Marcano III. Consult Notification Comment: md morrissey 09/24/16 08:30 Consult to Physician [CONS] Routine Comment: stricture Consulting Provider: Esau Palmer When should Consulting Provider be notified: Now Consult Notification Comment: ramona kim Discharging clinician: Erum Barron MD
[2016-09-26 11:48] VITALS: BP 99/47
--- NOTE | 2016-09-26 14:19 | Event Note ---
Her wound looks good. I see no sign of active infection. I am happy to follow her up in the clinic in the next week or so.
--- NOTE | 2016-09-26 14:38 | Operative Note ---
Date of procedure: 09/26/16 Pre-op diagnosis: Large open wound abdominal wall status post debridement Post-op diagnosis: same Procedure: Excisional debridement of subcutaneous tissue left lower quadrant abdominal wall and thigh 14 x 30 cm Findings and technique: After informed consent was obtained the patient was brought the operating room and placed in supine position. After IV sedation was administered the patient's lower abdomen thigh and perineum were prepped and draped in usual sterile fashion. Wound was explored with the VAC dressing off. There were scattered areas of necrotic subcutaneous tissue in the superior aspect of the wound which were aggressively debrided and the patient actually tolerated this well under sedation. Cautery was used for any potential bleeding points. I removed significant areas in the superior aspect of the wound and down to about the midportion of the wound. This ended up being an area of 14 x 30 cm of subcutaneous tissue that was debrided. This did not appear to be active aggressive necrotizing infection but this was probably more necrotic tissue left from the previous infection. Good hemostasis was obtained and the wound was aggressively irrigated and packed open with Kerlix rolls and a bulky dressing. I am going to leave the VAC dressing off for a couple of days in case we need to debride this again. Anesthesia: MAC Surgeon / Physician: Rcihard Marcano III. Estimated blood loss: other (50 mL) Specimens: none sent Condition: stable Disposition: PACU Results - Labs CBC & BMP: 09/25/16 04:31 09/25/16 04:31 Discharge Plan - Discharge Data Disposition: Disch To Home/Self Care - Discharge Medications New Chlorhexidine 4% Soln [Hibiclens] 1 applic TOP DAILY applic Clindamycin Cap [Cleocin Cap] 450 mg PO Q8HR #20 capsule Pantoprazole Tab [Protonix Tab] 40 mg PO BID #60 tablet Continue Zolpidem [Ambien] 5 mg PO BEDTIME PRN PRN Reason: Insomnia Albuterol Inhaler [Proventil Inhaler] 2 puff INH Q6H PRN #1 inhaler PRN Reason: Shortness Of Breath/Wheezing Atorvastatin [Lipitor] 10 mg PO QPM Amlodipine Besylate 5 mg PO QAM Calcium Acetate 2,001 mg PO BID W/MEALS Sertraline HCl [Zoloft] 50 mg PO QAM Prorenal D 1 tablet PO QPM Phenytoin ER Cap [Dilantin Cap] 100 mg PO BEDTIME Calcium Carbonate/Vitamin D3 [Calcium 600-Vit D3 800 Tablet] 1 each PO QAM Discontinued Omeprazole 20 mg PO QPM - Follow Up or Referral Follow Up: Your, PCP [Other] (1 week) Esau Palmer MD [Physician] - 11/01/16 2:30 pm Richard Marcano III., MD [Physician] - 10/08/16 10:45 am - Forms/Instructions Instructions: Clindamycin (By mouth), Pantoprazole (By mouth), Chest Pain (DC) , End-Stage Kidney Disease (DC)
== END 2016-09-26 15:00 | disposition home health service (06) | DRG 356 ==
LOC: N.ED 19:34 → N.EDINP 09-23 01:50 → SUATTDRO 09-23 01:50 → N.2E 09-23 03:22 → N.CC 09-23 04:24 → N.5E 09-24 10:56
PROVIDERS: ADMIT Internal Medicine; ATTEND Internal Medicine

== ENCOUNTER 2016-11-08 19:50 | Inpatient (IN) ==
--- NOTE | 2016-11-08 21:41 | Emergency Department Note ---
ITracy Gwan, am scribing for, and in the presence of, Jeannette Hui DO 21:37 . I, Jeannette Hui DO, personally performed the services described in this documentation, ascribed by Kandi Molina in my presence, and it is both accurate and complete . Arrival - Arrival Chief Complaint: Upper Respiratory Stated Complaint: COLD, COUGH, RUNNY NOSE, SNEEZING, VOMITING ED Nursing Triage Note: AMB TO ER WITH C/O COUGH, CONGESTION, BODY ACHES, AND FEVER THAT STARTED YESTERDAY AFTER DIALYSIS AND HAS STEADILY GOTTEN WORSE SINCE. STATES FEVER AT HOME HIGHEST OF 101. STATES HAS NOT TAKEN ANYTHING AT HOME FOR HER FEVER. Mode of Arrival: Ambulatory Limitations: No Limitations Source: Patient, Old Records Reviewed, RN Notes Reviewed - History of Present Illness HPI Narrative: Patient is a 46 y/o female, with a hx of CHF and renal failure (dialysis / /Sat), who presents to the ED with a c/o cough, congestion and vomiting with an onset today. Patient stated that after her dialysis treatment today her sxs worsened prompting her visit to the ED for further evaluation today. Patient denies taking any OTC for relief. At time of triage, pt's temperature was 99.9. No other problems/complaints reported in ED. Onset (ago): hour(s) Consistency: constant Severity: moderate Allergies/Adverse Reactions: Allergies Allergy/AdvReac Type Severity Reaction Status Date / Time morphine Allergy Mild Nausea Verified 09/22/16 19:54 Home Medications: Home Medications Medication Instructions Recorded Confirmed Type Zolpidem [Ambien] 5 mg PO BEDTIME PRN 06/16/15 09/24/16 History Albuterol Inhaler [Proventil 2 puff INH Q6H PRN #1 inhaler 11/23/15 09/24/16 Rx Inhaler] Amlodipine Besylate 5 mg PO QAM 01/25/16 09/24/16 History Atorvastatin [Lipitor] 10 mg PO QPM 01/25/16 09/24/16 History Phenytoin ER Cap [Dilantin Cap] 100 mg PO BEDTIME 02/01/16 09/24/16 History Calcium Acetate 2,001 mg PO BID W/MEALS 03/25/16 09/24/16 History Calcium Carbonate/Vitamin D3 1 each PO QAM 04/29/16 09/24/16 History [Calcium 600-Vit D3 800 Tablet] Prorenal D 1 tablet PO QPM 07/14/16 09/24/16 History Sertraline HCl [Zoloft] 50 mg PO QAM 07/14/16 09/24/16 History Chlorhexidine 4% Soln [Hibiclens] 1 applic TOP DAILY applic 09/26/16 Rx Clindamycin Cap [Cleocin Cap] 450 mg PO Q8HR #20 capsule 09/26/16 Rx Pantoprazole Tab [Protonix Tab] 40 mg PO BID #60 tablet 09/26/16 Rx Review of System - Review of System 12 point system: reviewed and no additional remarkable complaints except as stated - Review of System Respiratory: Present: as per HPI, cough, other (sneezing, runny nose) Cardiovascular: Absent: chest pain Gastrointestinal: Present: as per HPI, vomiting Medical,Surgical,& Family Hx - Medical History Cardio: History of: CHF, Hypertension, Cardiovascular Problems (heart cath @ [facility] w/ stent ?) Neurology: History of: Brain Aneurysm (CLAMPED IN 2013), Migraine, Peripheral Neuropathy, Seizures (greater than one month) Endocrine: No history of: Diabetes Mellitus (NIDDM) Rheumatology: History of;: Rheumatoid Arthritis Respiratory: History of: Asthma, Bronchitis, Obstructive Sleep Apnea (doesn't wear cpap as ordered), Respiratory Problems (SHORTNESS OF BREATH) Renal: History of: Dialysis (, , sat), Renal Failure (left upper arm fistula ) Gastrointestinal: History of: GERD Musculoskeletal: History of: Back/Neck Problems (LOWER BACK PAINS) Reproductive: History of: Complication (1 MISCARRIAGE) - Surgical History Cardiac Surgeries: Sugical HX of: Cardiac Catheterization (several years ago @ [place]) Neurologic Surgeries: Surgical HX of: Brain Aneurysm (CLAMPED IN 2013), Neurologic Surgery (aneurysm) HEENT Surgeries: Surgical HX of: Thyroid Surgery (2014) Abdominal Surgeries: Surgical HX of: Colonoscopy Reproductive Surgeries: Surgical HX of;: Tubal Ligation Orthopedic Surgeries: Surgical HX of;: Implanted Devices (CATHETER RIGHT SUBCLAVIAN, GRAFT RIGHT UPPER ARM) - Family History Family History: Reports;: Family Diabetes (mom (DM & HD)), Family Hypertension ( mom) Denies;: Family Anesthesia Reaction, Family Cancer, Family Heart Disease, Family Psychiatric Problems, Family Stroke - Social History Smoking Status: Never smoker Frequency of Alcohol Use: None Type of Drug Use: None Exam Vital Signs: Vital Signs Temperature 99.9 F H 11/08/16 20:33 Pulse Rate 89 11/08/16 20:33 Respiratory Rate 20 11/08/16 22:00 Blood Pressure 90/54 11/08/16 20:33 O2 Sat by Pulse Oximetry 97 11/08/16 20:33 - General General appearance: alert, in no apparent distress, obese, other (warm to touch ) - Head Head exam: Present: atraumatic, normocephalic - Eye Eye exam: Present: normal appearance, PERRL, EOMI - ENT ENT exam: Present: normal oropharynx, mucous membranes moist, TM's normal bilaterally, normal external ear exam - Expanded ENT Exam Throat exam: Present: tonsillar erythema - Neck Neck exam: Present: full ROM, trachea midline. Absent: tenderness - Chest Chest inspection: Present: symmetric chest wall rise. Absent: tenderness - Respiratory Respiratory exam: Present: wheezes (mild wheezing bilaterally), other ( Decreased breathe sounds more on the right.) - Cardiovascular Cardiovascular exam: Present: regular rate, normal rhythm, normal heart sounds. Absent: murmur - Abdominal Exam Abdominal exam: Present: soft. Absent: tenderness - Extremities Exam Extremities exam: Present: full ROM. Absent: tenderness - Back Exam Back exam: Present: full ROM. Absent: tenderness - Neurological Exam Neurological exam: Present: alert, oriented X3, CN II-XII intact. Absent: motor sensory deficit - Psychiatric Psychiatric exam: Present: normal affect, normal mood - Skin Skin exam: Present: other (Patient was warm to touch. ) Course Course Narrative: Patient will be admitted to hospitalist for pneumonia. Patient stable at this time Results - Labs CBC & BMP: 11/08/16 21:18 11/08/16 21:18 Lab Results: I have reviewed the patients labs Labs: Laboratory Tests 11/23/15 11/23/15 11/08/16 10:50 10:50 21:18 WBC 8.3 RBC 3.64 L 3.68 L Hgb 13.3 Hct 39.6 MCV 106 H 107.6 H MCH 36 H Plt Count 175 Neut % (Auto) 41.7 L Baso % (Auto) 1.7 H Potassium 3.3 L Chloride 97 L BUN 25 H Creatinine 9.59 H BUN/Creatinine Ratio 2.00 L Calcium 8.4 L ALT 12 L Total Protein 8.9 H Albumin 3.3 L Globulin 5.6 H Albumin/Globulin Ratio 0.5 L Laboratory Tests 11/08/16 21:18 Sodium 135 L Potassium 3.6 Chloride 94 L Carbon Dioxide 30 BUN 20 H Creatinine 7.10 H BUN/Creatinine Ratio 2.00 L Calculated Osmolality 272.1 L Total Protein 8.5 H Globulin 5.0 H Albumin/Globulin Ratio 0.7 L Laboratory Tests 11/08/16 21:18 Lactic Acid 1.6 Laboratory Tests 11/08/16 21:18 B-Natriuretic Peptide 80 - Diagnostic Findings Procedure: Chest x-ray: image reviewed by me (mild failure, infiltrate) Disposition Clinical Impression: Pneumonia Case discussed with: patient Disposition: Still a Patient Condition: Stable Time of Disposition: 23:52
[2016-11-08 21:56] LABS: Basophils # 0.1 10*3/uL (0.0-0.2); Basophils % 0.6 % (0.0-0.8); Eosinophils # 0.2 10*3/uL (0.0-0.87); Eosinophils % 2.4 % (0.00-10.9); Hematocrit 39.6 VOL% (35.7-47.0); Hemoglobin 13.3 GM/DL (12.0-16.0); Immature Granulocytes % 0.2 %; Immature Granulocytes Absolute 0.02 #; Lymphocytes # 2.1 10*3/uL (1.4-4.0); Lymphocytes % 25.8 % (21.3-54.2); Mean Corpuscular HGB Conc 33.6 GM/DL (32-36); Mean Corpuscular Hemoglobin 36 PG (27-34); Mean Corpuscular Volume 107.6 FL (87-102); Mean Platelet Volume 10.9 FL (9.6-12.0); Monocytes # 0.8 10*3/uL (0.11-0.8); Monocytes % 9.9 % (1.7-12.7); Neutrophils # 5.1 10*3/uL (1.4-7.4); Neutrophils % 61.1 % (38.7-73.9); Platelet Count 175 T/CUMM (130-400); Red Blood Count 3.68 MC/CUMM (3.8-5.5); Red Cell Distribution Width 14.1 % (9.3-17.3); White Blood Count 8.3 T/CUMM (4-12)
[2016-11-08] MEDS ORDERED: cefTRIAXone 1,000 MG in SODIUM CHLORIDE 0.9% 100 ML IV STA (22:01)
[2016-11-08] MEDS ORDERED: SODIUM CHLORIDE 0.9% 200 ML IV STA (22:06)
[2016-11-08] MEDS ORDERED: SODIUM CHLORIDE 0.9% 1,000 ML IV STA (22:08)
[2016-11-08] MEDS ORDERED: cefTRIAXone 1,000 MG VIAL ONE (22:11)
[2016-11-08 22:14] LABS: Albumin 3.5 G/DL (3.4-5.0); Bilirubin,Total 0.4 MG/DL (0.2-1.0); Calcium 9.5 MG/DL (8.5-10.1); Osmolality,Calculated 272.1 MOS/KG (273-304); Potassium 3.6 MMOL/L (3.5-5.1); Total Protein 8.5 G/DL (6.4-8.3)
[2016-11-08 22:16] LABS: Lactic Acid 1.6 MMOL/L (0.4-2.0)
[2016-11-08] MEDS ORDERED: HYDROcodone/CHLORPHENIRAMINE ER 5 ML UDCUP PO ONE ×2 (22:23→22:25)
[2016-11-09] MEDS ORDERED: DOCUSATE SODIUM 100 MG CAPSULE PO PRN (00:41)
[2016-11-09] MEDS ORDERED: ALBUTEROL/IPRATROPIUM 3 ML NEB RESP TX PRN (00:41)
[2016-11-09] MEDS ORDERED: ACETAMINOPHEN 325 MG TABLET PO PRN (00:41)
[2016-11-09] MEDS ORDERED: ONDANSETRON 4 MG/2 ML VIAL IV PRN (00:41)
--- NOTE | 2016-11-09 00:48 | EKG Report ---
Stationary ECG Study [facility] ER Test Date: 11/09/2016 12:09:02 AM Pat Name: SAHIL CARROLL Department: Room: Gender: F Financial Intern: : 1970 Requested by: Nabil Nix Order Number: [id number] Reading MD: DOMINGUEZ LAU Intervals [place] Rate: 84 P: 61 IA: 161 QRS: -12 QRSD: 81 T: 50 QT: 390 QTc: 431 Interpretive Statements SINUS RHYTHM POSSIBLE ANTERIOR MYOCARDIAL INFARCTION, PROBABLY OLD Electronically Signed On 11-09-16 06:58:39 CDT by DOMINGUEZ LAU [email or web address]
--- NOTE | 2016-11-09 00:51 | Hospitalist History & Physical ---
Assessment and Plan (1) CAP (community acquired pneumonia) Status: Acute Current Visit: Yes (2) Hypotension Status: Acute Current Visit: Yes (3) ESRD (end stage renal disease) on dialysis Status: Chronic Current Visit: No (4) GERD (gastroesophageal reflux disease) Status: Chronic Current Visit: Yes (5) Hx of seizure disorder Status: Chronic Assessment and plan: Plan: 1. Swab for influenza, test for Legionella, and strep pneumonia,. The patient has no leukocytosis and her lactate is not elevated however chest x-ray suggestive of infiltrates with congestion and productive cough and fever. Will cover for community-acquired pneumonia with Levaquin with pharmacy consult for dosing renal dosing. Patient did receive a dose of Rocephin in the ED. O2 to maintain sats greater than 92%, duo nebs as needed, mucolytic as needed, pulmonary toilet. The patient states that she does have some chest discomfort and feels this is related to a cough we will obtain an EKG. 2. Patient has a history of hypertension and takes Norvasc routinely however this is not on her home medication list they have not been verified. She is currently hypotensive with an systolic blood pressure in the 90s. She states that routinely after hemodialysis she runs hypotensive for a little while. We will place parameters to be notified for a MAP of than 65. Her BNP was not elevated. 3. We will add Protonix and antiemetic for nausea and vomiting and GERD. Heparin for DVT prophylaxis as well as SCDs and encourage early ambulation. 4. Renal was consulted for end-stage renal disease. She is a dialysis patient Saturday -- Saturday and underwent dialysis today. Creatinine is 7. Potassium is stable. Will reassess labs in the a.m. limit fluid intake and renally dose medications. 5. Patient states it has been several years since she has had a seizure. She has been on Dilantin with adequate control. Will obtain a Dilantin level and resume her Dilantin at 100 mg twice a day. Adjust based on level results. Sixty four minutes was spent on this patient not including procedures. Current Visit: Yes History of Present Illness Chief complaint: Fever cough and congestion History of present illness: Ms. Pruett is a 46-year-old -[place] female with past medical history significant for morbid obesity, hypertension, end-stage renal disease, on dialysis, Saturday, arthritis, Seizures, DAWNA not on CPAP, and asthma that presented to the ED today with complaints of overall feeling bad with fever. Associated symptoms include chills, congestion, productive cough, body aches, and vomiting that started after hemodialysis today and had progressively gotten worse with no improvement. There are no modifying factors. The symptoms have been constant. She denies any chest pain, shortness of breath, reflux at this time, abdominal pain, or diarrhea, or bloody stool. Chest x-ray was positive for bilateral infiltrates and cardiomegaly. Labs revealed mild hyponatremia and hypochloremia with a BUN of 20 and creatinine is 7.1 lactate was 1.6. Patient is mildly hypertensive with a adequate MAP. She states that she is hypertensive frequently after dialysis there is no tachycardia. T-max is 99.9. She received a dose of Rocephin in the ED. She is being admitted under hospital hospitalists service to [facility] floor. Home Medications Medication Instructions Recorded Confirmed Type Zolpidem [Ambien] 5 mg PO BEDTIME PRN 06/16/15 09/24/16 History Albuterol Inhaler [Proventil 2 puff INH Q6H PRN #1 inhaler 11/23/15 09/24/16 Rx Inhaler] Amlodipine Besylate 5 mg PO QAM 01/25/16 09/24/16 History Atorvastatin [Lipitor] 10 mg PO QPM 01/25/16 09/24/16 History Phenytoin ER Cap [Dilantin Cap] 100 mg PO BEDTIME 02/01/16 09/24/16 History Calcium Acetate 2,001 mg PO BID W/MEALS 03/25/16 09/24/16 History Calcium Carbonate/Vitamin D3 1 each PO QAM 04/29/16 09/24/16 History [Calcium 600-Vit D3 800 Tablet] Prorenal D 1 tablet PO QPM 07/14/16 09/24/16 History Sertraline HCl [Zoloft] 50 mg PO QAM 07/14/16 09/24/16 History Chlorhexidine 4% Soln [Hibiclens] 1 applic TOP DAILY applic 09/26/16 Rx Clindamycin Cap [Cleocin Cap] 450 mg PO Q8HR #20 capsule 09/26/16 Rx Pantoprazole Tab [Protonix Tab] 40 mg PO BID #60 tablet 09/26/16 Rx Allergies Allergy/AdvReac Type Severity Reaction Status Date / Time morphine Allergy Mild Nausea Verified 09/22/16 19:54 Medical,Surgical,& Family Hx - Medical History Cardio: History of: CHF, Hypertension, Cardiovascular Problems (heart cath @ [facility] w/ stent ?) Neurology: History of: Brain Aneurysm (CLAMPED IN 2013), Migraine, Peripheral Neuropathy, Seizures (greater than one month) Endocrine: No history of: Diabetes Mellitus (NIDDM) Rheumatology: History of;: Rheumatoid Arthritis Respiratory: History of: Asthma, Bronchitis, Obstructive Sleep Apnea (doesn't wear cpap as ordered), Respiratory Problems (SHORTNESS OF BREATH) Renal: History of: Dialysis (, , sat), Renal Failure (left upper arm fistula ) Gastrointestinal: History of: GERD Musculoskeletal: History of: Back/Neck Problems (LOWER BACK PAINS) Reproductive: History of: Complication (1 MISCARRIAGE) - Surgical History Cardiac Surgeries: Sugical HX of: Cardiac Catheterization (several years ago @ [place]) Neurologic Surgeries: Surgical HX of: Brain Aneurysm (CLAMPED IN 2013), Neurologic Surgery (aneurysm) HEENT Surgeries: Surgical HX of: Thyroid Surgery (2014) Abdominal Surgeries: Surgical HX of: Colonoscopy Reproductive Surgeries: Surgical HX of;: Tubal Ligation Orthopedic Surgeries: Surgical HX of;: Implanted Devices (CATHETER RIGHT SUBCLAVIAN, GRAFT RIGHT UPPER ARM) - Family History Family History: Reports;: Family Diabetes (mom (DM & HD)), Family Hypertension ( mom) Denies;: Family Anesthesia Reaction, Family Cancer, Family Heart Disease, Family Psychiatric Problems, Family Stroke - Social History Smoking Status: Never smoker Have you smoked in the last 12 months: No Frequency of Alcohol Use: None Type of Drug Use: None Marital Status: Single Lives With:: Parent Functional capacity: independent ambulation 12 point system: reviewed and no additional remarkable complaints except as stated - Constitutional Constitutional: Present: chills, fatigue, fever(s) - EENT Eyes: Absent: blurry vision, diplopia Ears: Absent: decreased hearing, ear discharge, ear pain Nose, mouth and throat: Present: nasal congestion. Absent: epistaxis, headache( s), hoarseness - Cardiovascular Cardiovascular: Present: edema (generalized ). Absent: chest pain at rest, dyspnea, palpitations - Respiratory Respiratory: Present: cough, dyspnea on exertion, change in phlegm color. Absent: pain on inspiration - Gastrointestinal Gastrointestinal: Present: heartburn, nausea, vomiting. Absent: abdominal pain , loose stools - Genitourinary Genitourinary: Present: other (ESRD anuric) - Musculoskeletal Musculoskeletal: Present: myalgias - Neurological Neurological: Absent: confusion, convulsions, disequilibrium, numbness, syncope - Psychiatric Psychiatric: Absent: auditory hallucinations, confusion, visual hallucinations - Endocrine Endocrine: Present: fatigue - Hematologic/Lymphatic Hematologic/Lymphatic: Absent: easy bleeding, easy bruising, lymphadenopathy Exam - Constitutional Vitals: Period Temp Pulse Resp BP Sys/Dos Santos Pulse Ox Last 24 Hr 99.9 F-99.9 F 89-89 18-20 90-90/54-54 97 General appearance: over weight, morbidly obese - Head Head exam: Present: normocephalic, atraumatic - Eye Eye exam: Present: EOMI (conjunctivitis with no drainage), other Pupils: Present: AMIRAH - ENT ENT exam: Present: normal exam, normal oropharynx - Neck Neck exam: Present: normal inspection, other (scar over thyroid area). Absent: lymphadenopathy, tenderness - Respiratory Respiratory exam: Present: decreased breath sounds - Cardiovascular Cardiovascular exam: Present: regular rate and rhythm - GI/Abdominal GI/Abdominal exam: Present: normal bowel sounds - Extremities Exam Extremities exam: Present: normal capillary refill, full ROM, edema, other ( positive thrill noted on AV fistula of left upper arm. ) - Back Exam Back exam: Present: normal inspection - Neurological Exam Neurological exam: Present: alert, oriented X3, CN II-XII intact - Psychiatric Psychiatric exam: Present: normal affect - Skin Skin exam: Present: normal color, warm, dry, intact Results - Labs CBC & BMP: 11/08/16 21:18 11/08/16 21:18 - Diagnostic Findings Procedure: Chest x-ray: image reviewed by me
[2016-11-09] MEDS ORDERED: LEVOFLOXACIN INJ 750 MG in PREMIX 1 EACH IV ONE (02:30)
[2016-11-09] MEDS: HEPARIN 5,000 UNIT/1 ML VIAL SUBCUT SCH ×3 (03:01→18:27)
[2016-11-09 06:28] LABS: Basophils % 0.5 % (0.0-0.8); Eosinophils # 0.3 10*3/uL (0.0-0.87); Hematocrit 36.9 VOL% (35.7-47.0); Hemoglobin 12.3 GM/DL (12.0-16.0); Immature Granulocytes % 0.5 %; Immature Granulocytes Absolute 0.03 #; Lymphocytes # 2.1 10*3/uL (1.4-4.0); Mean Corpuscular HGB Conc 33.3 GM/DL (32-36); Mean Corpuscular Hemoglobin 36 PG (27-34); Mean Corpuscular Volume 108.2 FL (87-102); Monocytes # 0.8 10*3/uL (0.11-0.8); Monocytes % 12.8 % (1.7-12.7); Neutrophils % 47.2 % (38.7-73.9); Platelet Count 151 T/CUMM (130-400); Red Blood Count 3.41 MC/CUMM (3.8-5.5); Red Cell Distribution Width 14.2 % (9.3-17.3); White Blood Count 6.3 T/CUMM (4-12)
--- NOTE | 2016-11-09 06:51 | XRay Report ---
XR chest 1V portable Indication: Upper respiratory tract infection Comparison: 22 September 2016 Findings: The heart and mediastinum are normal in size and configuration. The pulmonary vascularity is normal in caliber. No lung infiltrates, effusions, pneumothorax or other abnormality is demonstrated. Impression: Normal chest x-ray PROCEDURE INTERPRETED AT [facility] DEPARTMENT OF RADIOLOGY Final Report Signed by: Dr. Alberto Shell
[2016-11-09 06:57] LABS: Calcium 8.9 MG/DL (8.5-10.1); Osmolality,Calculated 270.2 MOS/KG (273-304); Potassium 3.5 MMOL/L (3.5-5.1)
[2016-11-09] MEDS ORDERED: ALBUTEROL 2.5 MG/3 ML NEB RESP TX PRN (08:10)
[2016-11-09] MEDS ORDERED: ZALEPLON 5 MG CAPSULE PO PRN (08:10)
--- NOTE | 2016-11-09 08:40 | Nephrology Consult Note ---
History of Present Illness Chief complaint: esrd History of present illness: Ms. Pruett is a 46 year old female with end-stage renal disease who dialyzes Saturday. She dialyzed yesterday uneventfully and then took a step to the emergency room last night complaining of body aches and mild shortness of breath. She does have a history of bronchitis with bronchospasm. Physical exam she is obese but in no distress she is lying flat. Her chest is clear. Extremities are without edema. Heart rhythm is regular. Chest x-ray without infiltrate Impression end-stage renal disease #2 bronchitis with bronchospasm Plan hemodialysis per usual schedule Home Medications Medication Instructions Recorded Confirmed Type Zolpidem [Ambien] 5 mg PO BEDTIME PRN 06/16/15 11/09/16 History Albuterol Inhaler [Proventil 2 puff INH Q6H PRN #1 inhaler 11/23/15 11/09/16 Rx Inhaler] Amlodipine Besylate 5 mg PO QAM 01/25/16 11/09/16 History Atorvastatin [Lipitor] 10 mg PO QPM 01/25/16 11/09/16 History Phenytoin ER Cap [Dilantin Cap] 100 mg PO BEDTIME 02/01/16 11/09/16 History Calcium Acetate 2,001 mg PO BID W/MEALS 03/25/16 11/09/16 History Calcium Carbonate/Vitamin D3 1 each PO QAM 04/29/16 11/09/16 History [Calcium 600-Vit D3 800 Tablet] Prorenal D 1 tablet PO QPM 07/14/16 11/09/16 History Sertraline HCl [Zoloft] 50 mg PO QAM 07/14/16 11/09/16 History Chlorhexidine 4% Soln [Hibiclens] 1 applic TOP DAILY applic 09/26/16 11/09/16 Rx Pantoprazole Tab [Protonix Tab] 40 mg PO BID #60 tablet 09/26/16 11/09/16 Rx Allergies Allergy/AdvReac Type Severity Reaction Status Date / Time morphine Allergy Mild Nausea Verified 09/22/16 19:54 Medical,Surgical,& Family Hx - Medical History Cardio: History of: CHF, Hypertension, Cardiovascular Problems (heart cath @ [facility] w/ stent ?) Neurology: History of: Brain Aneurysm (CLAMPED IN 2013), Migraine, Peripheral Neuropathy, Seizures (greater than one month) Endocrine: No history of: Diabetes Mellitus (NIDDM) Rheumatology: History of;: Rheumatoid Arthritis Respiratory: History of: Asthma, Bronchitis, Obstructive Sleep Apnea (doesn't wear cpap as ordered), Respiratory Problems (SHORTNESS OF BREATH) Renal: History of: Dialysis (, , sat), Renal Failure (left upper arm fistula ) Gastrointestinal: History of: GERD Musculoskeletal: History of: Back/Neck Problems (LOWER BACK PAINS) Reproductive: History of: Complication (1 MISCARRIAGE) - Surgical History Cardiac Surgeries: Sugical HX of: Cardiac Catheterization (several years ago @ [place]) Thoracic Surgeries: Patient denies;: Lobectomy Neurologic Surgeries: Surgical HX of: Brain Aneurysm (CLAMPED IN 2013), Neurologic Surgery (aneurysm) HEENT Surgeries: Surgical HX of: Thyroid Surgery (2014) Abdominal Surgeries: Surgical HX of: Colonoscopy Reproductive Surgeries: Surgical HX of;: Tubal Ligation Orthopedic Surgeries: Surgical HX of;: Implanted Devices (CATHETER RIGHT SUBCLAVIAN, GRAFT RIGHT UPPER ARM) - Family History Family History: Reports;: Family Diabetes (mom (DM & HD)), Family Hypertension ( mom) Denies;: Family Anesthesia Reaction, Family Cancer, Family Heart Disease, Family Psychiatric Problems, Family Stroke - Social History Smoking Status: Never smoker Frequency of Alcohol Use: None Type of Drug Use: None Review of Systems 12 point system: reviewed and no additional remarkable complaints except as stated Exam - Vital Signs Vital signs: Period Temp Pulse Resp BP Sys/Dos Santos Pulse Ox Last 24 Hr 97.3 F-99.9 F 76-89 18-20 85-133/48-99 95-97 - General Appearance General appearance: well-developed, well-nourished, appears started age, obese Neck: no JVD, no thyromegaly, no carotid bruit, supple Respiratory: no kyphosis, no scoliosis Cardiology: no murmurs, no rub, no gallops, no edema, regular rate, regular rhythm, normal S1, normal S2 Gastrointestinal: normoactive bowel sounds Integumentary: no rash, warm and dry Neurologic: no focal deficit, no asterixis, alert and oriented x3, reflexes 2+ and symmetric, gait normal, strength 5/5 Musculoskeletal: no deformities, no erythema, no cyanosis, no clubbing Psychiatric: mood/affect appropriate, cooperative Results - Labs CBC & BMP: 11/09/16 05:40 11/09/16 05:40 Assessment and Plan (1) ESRD on hemodialysis Status: Chronic Current Visit: No (2) Bronchitis Status: Acute Current Visit: No Specialty Discharge - Follow Up or Referrals - Speciality Discharge Instructions Nephrology Instructions: Hemodialysis today with volume removal as tolerated
[2016-11-09] MEDS ORDERED: amLODIPine 5 MG TABLET PO SCH (09:00)
--- NOTE | 2016-11-09 09:06 | Hospitalist Progress Note ---
Assessment and Plan (1) Sepsis Status: Acute Assessment and plan: Patient appears significantly improved today. Her vital signs are the following : Blood pressure 159/80, HR 76/min, temperature 97F. She continues on intravenous levofloxacin. Current Visit: Yes Qualifiers: Sepsis type: sepsis due to unspecified organism Qualified Code(s): A41.9 - Sepsis, unspecified organism (2) Morbid obesity Status: Chronic Current Visit: No (3) ESRD on hemodialysis Status: Chronic Assessment and plan: She continues her regularly scheduled hemodialysis schedule under the management of nephrology. Current Visit: No (4) CAP (community acquired pneumonia) Status: Acute Assessment and plan: She is being treated with intravenous levofloxacin. She appears to be recovering well. Current Visit: Yes Hospitalist: Subjective Interval history: Patient was hospitalized here last night with pneumonia. She was begun on intravenous antibiotics with levofloxacin. She states that she feels much better today. She will continue her regularly scheduled hemodialysis under the management of nephrology. Exam - Constitutional Vitals: Period Temp Pulse Resp BP Sys/Dos Santos Pulse Ox Last 24 Hr 97.3 F-99.9 F 73-89 18-20 85-133/47-99 95-97 General appearance: no acute distress, morbidly obese - Head Head exam: Present: normal inspection - Neck Neck exam: Present: normal inspection - Respiratory Respiratory exam: Present: clear to auscultation bilaterally - Cardiovascular Cardiovascular exam: Present: regular rate and rhythm - GI/Abdominal GI/Abdominal exam: Present: normal bowel sounds, soft, other (Nontender with no palpable masses or hepatosplenomegaly.) - Extremities Exam Extremities exam: Present: normal inspection - Skin Skin exam: Present: normal color, warm, intact Results - Labs CBC & BMP: 11/09/16 05:40 11/09/16 05:40
[2016-11-09] MEDS: PHENYTOIN ER 100 MG CAPSULE PO SCH ×2 (10:45→20:33)
[2016-11-09] MEDS: PANTOPRAZOLE 40 MG TABLET PO SCH (10:45)
[2016-11-09] MEDS: CALCIUM (CARBONATE)/VITAMIN D 600 MG-400 UNIT TABLET PO SCH (10:45)
[2016-11-09] MEDS: CHLORHEXIDINE 4% SOLN 118 ML BOTTLE TOP SCH (10:45)
[2016-11-09] MEDS: SERTRALINE 50 MG TABLET PO SCH (10:47)
[2016-11-09] MEDS: CALCIUM ACETATE 667 MG CAPSULE PO SCH (18:24)
[2016-11-09] MEDS ORDERED: ATORVASTATIN 10 MG TABLET PO SCH (19:00)
[2016-11-09] MEDS ORDERED: NON-FORMULARY MEDICATION (Prorenal D 1 TABLET) PO SCH (19:00)
[2016-11-10] MEDS: HEPARIN 5,000 UNIT/1 ML VIAL SUBCUT SCH ×2 (06:15→16:13)
[2016-11-10] MEDS: CALCIUM ACETATE 667 MG CAPSULE PO SCH (08:28)
[2016-11-10 08:45] VITALS: BP 114/62
--- NOTE | 2016-11-10 08:48 | Dialysis Note ---
Dialysis Note - Dialysis Note Ms. Pruett is seen during her hemodialysis. She still has some wheezing. We are going to decrease her body weight down to her optimal weight and that should help any component of fluid overload is contributing to this bronchospasm.
--- NOTE | 2016-11-10 08:56 | Discharge Summary ---
Hospital Course - Hospital Course Hospital Course: radha Pruett is a 46-year-old -[place] female with past medical history significant for morbid obesity, hypertension, end-stage renal disease, on dialysis, Saturday, arthritis, Seizures, DAWNA not on CPAP, and asthma that presented to the ED today with complaints of overall feeling bad with fever. Associated symptoms include chills, congestion, productive cough, body aches, and vomiting that started after hemodialysis today and had progressively gotten worse with no improvement. There are no modifying factors. The symptoms have been constant. She denies any chest pain, shortness of breath, reflux at this time, abdominal pain, or diarrhea, or bloody stool. Chest x-ray was positive for bilateral infiltrates and cardiomegaly. Labs revealed mild hyponatremia and hypochloremia with a BUN of 20 and creatinine is 7.1 lactate was 1.6. Patient is mildly hypertensive with a adequate MAP. She states that she is hypertensive frequently after dialysis there is no tachycardia. T-max is 99.9. She received a dose of Rocephin in the ED. Ms. Pruett was admitted to the hospital diagnosis of pneumonia. She was treated with intravenous levofloxacin following the dose of ceftriaxone that she received in the emergency department. She was seen in consultation by nephrology for continuation of her hemodialysis. She did well, recovering quickly. At the time of her discharge she was comfortable with no complaints and eager to go home. Diagnosis - Discharge Diagnosis (1) Sepsis Status: Acute (2) Morbid obesity Status: Chronic (3) ESRD on hemodialysis Status: Chronic (4) CAP (community acquired pneumonia) Status: Acute Discharge Plan - Discharge Data Disposition: Disch To Home/Self Care Condition at Discharge: Stable Discharge Diet: advance to your usual diet Activity: resume usual activities as tolerated - Discharge Medications New Levofloxacin Tab [Levaquin Tab] 500 mg PO DAILY #5 tablet Continue Zolpidem [Ambien] 5 mg PO BEDTIME PRN PRN Reason: Insomnia Albuterol Inhaler [Proventil Inhaler] 2 puff INH Q6H PRN #1 inhaler PRN Reason: Shortness Of Breath/Wheezing Atorvastatin [Lipitor] 10 mg PO QPM Amlodipine Besylate 5 mg PO QAM Calcium Acetate 2,001 mg PO BID W/MEALS Sertraline HCl [Zoloft] 50 mg PO QAM Prorenal D 1 tablet PO QPM Chlorhexidine 4% Soln [Hibiclens] 1 applic TOP DAILY applic Phenytoin ER Cap [Dilantin Cap] 100 mg PO BEDTIME Calcium Carbonate/Vitamin D3 [Calcium 600-Vit D3 800 Tablet] 1 each PO QAM Pantoprazole Tab [Protonix Tab] 40 mg PO BID #60 tablet - Follow Up or Referral - Forms/Instructions Exam - Constitutional Vitals: Period Temp Pulse Resp BP Sys/[place] Pulse Ox Last 24 Hr 96.7 F-98.2 F 67-77 18-22 102-133/51-76 92-98 Discharge Results Procedures and tests throughout hospitalization: Pending Orders 11/08/16 21:45 Blood Culture Stat Labs on day of discharge: Preliminary micro results at discharge 11/08/16 21:45 Blood Culture - Preliminary Blood No growth at 1 day 11/08/16 21:18 Blood Culture - Preliminary Blood No growth at 1 day DS: Provider Date of admission: 11/09/16 00:41 Primary care physician: LILLIAM HOWARD NP Attending physician on admission: Fili Martini MD Consults: 11/09/16 00:41 Consult to Physician [CONS] Routine Comment: Consulting Provider: Reagan Cristobal Consult to Specialist Group: Nephrology When should Consulting Provider be notified: In am Person Notified: RAJIV Date Notified: 11/09/16 Time Notified: 07:38 Discharging clinician: Micha Almaraz
[2016-11-10] MEDS: CHLORHEXIDINE 4% SOLN 118 ML BOTTLE TOP SCH (09:00)
[2016-11-10] MEDS: PHENYTOIN ER 100 MG CAPSULE PO SCH (16:11)
[2016-11-10] MEDS: CALCIUM (CARBONATE)/VITAMIN D 600 MG-400 UNIT TABLET PO SCH (16:11)
[2016-11-10] MEDS: PANTOPRAZOLE 40 MG TABLET PO SCH (16:12)
[2016-11-10] MEDS: SERTRALINE 50 MG TABLET PO SCH (16:12)
[2016-11-11] MEDS ORDERED: LEVOFLOXACIN INJ 500 MG in PREMIX 1 EACH IV SCH (02:30)
--- NOTE | 2016-11-12 11:21 | Physician Query Form ---
CLICK EDIT DOCUMENT TO SELECT QUERY ANSWER --> OK --> SIGN PROVIDERS: Make your selection(s) from the choices in EACH section by typing an "x" and enter comments in the comment section. Please use your independent medical judgment in providing your response. This request does not imply that any particular answer is desired or expected. CLINICAL INDICATORS: (Providers should not edit this section) The medical record indicates that the patient was admitted with Pneumonia, Normal WBC, Lactic Acid of 1.6#, (-) blood cultures X's 2, Temp 99.9 or below, Heart Rate 99 or below, and patient was placed on Antibiotics. Sepsis is mentioned, as the attending MD can you please clarify if the Sepsis was confirmed or ruled out? Please clarify which, if any, of the following is the etiology of the above symptoms and treatment rendered: ( ) Sepsis was a confirmed dx's ---- Please include indicators here: ( x) Sepsis was ruled out ( ) Other condition, please specify: ( ) Clinically unable to determine Criteria for Sepsis (SIRS due to an infection) should be based on 2 or more of the following being present: Temperature > 101F or < 96.8F WBC > 12,000 or < 4,000, or > 10% bands Tachycardia HR > 90 beats/minute Tachypnea RR > 20 breaths/minute or PaCO2 > 32mmHg Lactate level > 2.0 mmol/L (>4 is equivalent to severe sepsis) Altered Mental Status Mottling of skin or prolonged capillary refill Non-diabetic hyperglycemia (blood sugar >120 mg/dl) Other evidence of acute organ failure associated with sepsis ( severe sepsis) COMMENTS: PLEASE ALSO DOCUMENT RESPONSE IN PROGRESS NOTES AND/OR DISCHARGE SUMMARY Use of terms such as suspected, likely, or probable (associated with a specific diagnosis that is being evaluated, monitored, or treated as if it exists) are acceptable and can be restated in the discharge summary if not ruled out. MTDD
== END 2016-11-10 16:15 | disposition home or self-care (01) | DRG 193 ==
LOC: N.ED 19:50 → SUATTDRO 11-09 00:41 → N.2E 11-09 00:41
PROVIDERS: ADMIT Internal Medicine

== ENCOUNTER 2018-02-13 18:09 | Observation (INO) ==
[2018-02-13] MEDS ORDERED: PANTOPRAZOLE 40 MG VIAL IV STA (19:22)
[2018-02-13] MEDS ORDERED: ALUM/MAG/SIMETH/LIDO VISC 1:1 30 ML BOTTLE PO STA (19:22)
[2018-02-13] MEDS ORDERED: ALBUTEROL/IPRATROPIUM 3 ML NEB RESP TX STA (19:22)
[2018-02-13] MEDS ORDERED: ONDANSETRON 4 MG/2 ML VIAL IV STA (19:22)
[2018-02-13] MEDS ORDERED: methylPREDNISolone SOD SUC 125 MG/2 ML VIAL IV STA (19:22)
[2018-02-13] MEDS ORDERED: ASPIRIN 325 MG TABLET PO STA (19:22)
[2018-02-13] MEDS ORDERED: NITROGLYCERIN 2% OINT 1 INCH/GM PACK TOP STA (19:22)
[2018-02-13] MEDS ORDERED: HYDROmorphone 2 MG/1 ML VIAL IV STA (19:22)
[2018-02-13] MEDS ORDERED: hydrALAZINE 20 MG/1 ML VIAL IV STA (19:24)
[2018-02-13 19:31] LABS: Basophils # 0.1 10*3/uL (0.0-0.2); Basophils % 0.6 % (0.0-0.8); Eosinophils # 0.4 10*3/uL (0.0-0.87); Eosinophils % 4.7 % (0.00-10.9); Hematocrit 43.2 VOL% (35.7-47.0); Hemoglobin 13.2 GM/DL (12.0-16.0); Immature Granulocytes % 0.6 %; Immature Granulocytes Absolute 0.05 #; Lymphocytes # 2.4 10*3/uL (1.4-4.0); Lymphocytes % 28.3 % (21.3-54.2); Mean Corpuscular HGB Conc 30.6 GM/DL (32-36); Mean Corpuscular Hemoglobin 33 PG (27-34); Mean Corpuscular Volume 108.3 FL (87-102); Mean Platelet Volume 10.5 FL (9.6-12.0); Monocytes # 0.8 10*3/uL (0.11-0.8); Monocytes % 9.6 % (1.7-12.7); NRBC # 0.02 10*3/uL; Neutrophils # 4.7 10*3/uL (1.4-7.4); Neutrophils % 56.2 % (38.7-73.9); Platelet Count 214 T/CUMM (130-400); Red Blood Count 3.99 MC/CUMM (3.8-5.5); Red Cell Distribution Width 15.2 % (9.3-17.3); White Blood Count 8.4 T/CUMM (4-12)
[2018-02-13 20:00] LABS: PT Patient Result 10.7 SECS
[2018-02-13 20:13] LABS: Albumin 3.7 G/DL (3.4-5.0); Bilirubin,Total 0.4 MG/DL (0.2-1.0); Calcium 10.5 MG/DL (8.5-10.1); Osmolality,Calculated 270.4 MOS/KG (273-304); Total Protein 9.3 G/DL (6.4-8.3)
[2018-02-13] MEDS ORDERED: ONDANSETRON 4 MG/2 ML VIAL IV PRN (21:37)
[2018-02-13] MEDS ORDERED: ZALEPLON 5 MG CAPSULE PO PRN (21:37)
[2018-02-13] MEDS ORDERED: ACETAMINOPHEN 325 MG TABLET PO PRN (21:37)
[2018-02-13] MEDS ORDERED: TEMAZEPAM 15 MG CAPSULE PO PRN (21:42)
[2018-02-13] MEDS ORDERED: ALBUTEROL 2.5 MG/3 ML NEB RESP TX PRN (21:42)
[2018-02-13] MEDS ORDERED: hydrOXYzine HCL 25 MG TABLET PO PRN (21:42)
[2018-02-13] MEDS ORDERED: TOPIRAMATE 100 MG TABLET PO SCH (21:45)
[2018-02-13] MEDS ORDERED: NITROGLYCERIN SL 0.4 MG TABLET SL PRN (21:56)
[2018-02-13] MEDS ORDERED: HYDROmorphone 2 MG/1 ML VIAL IV PRN (21:57)
[2018-02-13] MEDS ORDERED: ATORVASTATIN 10 MG TABLET PO SCH (22:00)
[2018-02-14 03:37] LABS: Basophils % 0.2 % (0.0-0.8); Eosinophils % 0.2 % (0.00-10.9); Hematocrit 37.6 VOL% (35.7-47.0); Hemoglobin 11.6 GM/DL (12.0-16.0); Immature Granulocytes Absolute 0.06 #; Lymphocytes # 0.8 10*3/uL (1.4-4.0); Lymphocytes % 12.9 % (21.3-54.2); Mean Corpuscular HGB Conc 30.9 GM/DL (32-36); Mean Corpuscular Hemoglobin 33 PG (27-34); Mean Corpuscular Volume 106.5 FL (87-102); Mean Platelet Volume 10.9 FL (9.6-12.0); Monocytes # 0.1 10*3/uL (0.11-0.8); Monocytes % 1.7 % (1.7-12.7); Neutrophils # 4.9 10*3/uL (1.4-7.4); Platelet Count 209 T/CUMM (130-400); Red Blood Count 3.53 MC/CUMM (3.8-5.5); Red Cell Distribution Width 15.1 % (9.3-17.3); White Blood Count 5.9 T/CUMM (4-12)
[2018-02-14 03:51] LABS: Calcium 10.3 MG/DL (8.5-10.1); Osmolality,Calculated 271.5 MOS/KG (273-304); Potassium 4.7 MMOL/L (3.5-5.1); Risk Ratio 3.82; Thyroid Stimulating Hormone 5.23 uIU/ml (0.358-3.74); VLDL CHOLESTEROL 16.4 MG/DL
[2018-02-14] MEDS ORDERED: Sucroferric Oxyhydroxide [Velphoro Chew Tab] 500 MG PO SCH (08:00)
[2018-02-14] MEDS ORDERED: REGADENOSON 0.4 MG/5 ML SYRINGE IV ONE (08:02)
[2018-02-14] MEDS ORDERED: PRORENAL D PO SCH (09:00)
[2018-02-14] MEDS ORDERED: ERGOCALCIFEROL 50,000 UNIT CAPSULE PO SCH (09:00)
[2018-02-14] MEDS: ASPIRIN EC 81 MG TABLET PO SCH ×2 (10:00→10:22)
[2018-02-14] MEDS: BUDESONIDE/FORMOTEROL 160-4.5 INHALER 6 GM INH SCH ×2 (10:01→10:22)
[2018-02-14] MEDS: SERTRALINE 50 MG TABLET PO SCH ×2 (10:01→10:22)
[2018-02-14] MEDS: CALCIUM (CARBONATE)/VITAMIN D 600 MG-400 UNIT TABLET PO SCH ×2 (10:01→10:02)
[2018-02-14] MEDS: PANTOPRAZOLE 40 MG TABLET PO SCH ×2 (10:01→10:22)
[2018-02-14] MEDS: CINACALCET 30 MG TABLET PO SCH ×2 (10:01→10:22)
[2018-02-14 12:15] VITALS: BP 102/51
== END 2018-02-14 15:40 | disposition home or self-care (01) ==
LOC: N.ED 18:09 → N.EDINP 18:09 → N.TELES 22:42
PROVIDERS: ADMIT Internal Medicine; ATTEND Internal Medicine

== ENCOUNTER 2018-04-12 21:06 | Inpatient (IN) ==
[2018-04-12] MEDS ORDERED: ALBUTEROL/IPRATROPIUM 3 ML NEB RESP TX STA (22:16)
[2018-04-12] MEDS ORDERED: methylPREDNISolone SOD SUC 125 MG/2 ML VIAL IV STA (22:16)
[2018-04-12 22:24] LABS: Basophils % 0.4 % (0.0-0.8); Eosinophils # 0.3 10*3/uL (0.0-0.87); Eosinophils % 3.4 % (0.00-10.9); Hematocrit 43.5 VOL% (35.7-47.0); Hemoglobin 13.9 GM/DL (12.0-16.0); Immature Granulocytes % 0.8 %; Immature Granulocytes Absolute 0.06 #; Lymphocytes # 2.3 10*3/uL (1.4-4.0); Lymphocytes % 31.6 % (21.3-54.2); Mean Corpuscular Hemoglobin 34 PG (27-34); Mean Corpuscular Volume 105.3 FL (87-102); Mean Platelet Volume 11.6 FL (9.6-12.0); Monocytes # 0.7 10*3/uL (0.11-0.8); Monocytes % 9.5 % (1.7-12.7); Neutrophils % 54.3 % (38.7-73.9); Platelet Count 224 T/CUMM (130-400); Red Blood Count 4.13 MC/CUMM (3.8-5.5); Red Cell Distribution Width 14.4 % (9.3-17.3); White Blood Count 7.4 T/CUMM (4-12)
[2018-04-12 23:35] LABS: Albumin 2.8 G/DL (3.4-5.0); Bilirubin,Total 0.4 MG/DL (0.2-1.0); Calcium 7.7 MG/DL (8.5-10.1); Osmolality,Calculated 286.1 MOS/KG (273-304); Potassium 3.4 MMOL/L (3.5-5.1); Total Protein 6.2 G/DL (6.4-8.3)
[2018-04-13] MEDS ORDERED: ALBUTEROL/IPRATROPIUM 3 ML NEB RESP TX STA (00:04)
[2018-04-13] MEDS ORDERED: ONDANSETRON 4 MG/2 ML VIAL IV PRN (00:53)
[2018-04-13] MEDS ORDERED: ALBUTEROL 2.5 MG/3 ML NEB RESP TX PRN (01:00)
[2018-04-13] MEDS: ENOXAPARIN 30 MG/0.3 ML SYRINGE SUBCUT SCH (02:38)
[2018-04-13] MEDS: ALBUTEROL/IPRATROPIUM 3 ML NEB RESP TX SCH ×5 (03:26→19:45)
[2018-04-13] MEDS: methylPREDNISolone SOD SUC 40 MG/1 ML VIAL IV SCH ×3 (05:14→21:55)
[2018-04-13 06:09] LABS: Basophils % 0.2 % (0.0-0.8); Eosinophils % 0.2 % (0.00-10.9); Hematocrit 41.1 VOL% (35.7-47.0); Immature Granulocytes % 1.2 %; Immature Granulocytes Absolute 0.06 #; Lymphocytes # 0.9 10*3/uL (1.4-4.0); Lymphocytes % 17.1 % (21.3-54.2); Mean Corpuscular HGB Conc 31.6 GM/DL (32-36); Mean Corpuscular Hemoglobin 34 PG (27-34); Mean Corpuscular Volume 106.5 FL (87-102); Mean Platelet Volume 10.9 FL (9.6-12.0); Monocytes # 0.1 10*3/uL (0.11-0.8); Neutrophils % 79.3 % (38.7-73.9); Platelet Count 170 T/CUMM (130-400); Red Blood Count 3.86 MC/CUMM (3.8-5.5); Red Cell Distribution Width 14.2 % (9.3-17.3); White Blood Count 5.1 T/CUMM (4-12)
[2018-04-13 06:25] LABS: Calcium 9.8 MG/DL (8.5-10.1); Osmolality,Calculated 280.1 MOS/KG (273-304); Potassium 4.6 MMOL/L (3.5-5.1)
[2018-04-13] MEDS ORDERED: Sucroferric Oxyhydroxide [Velphoro Chew Tab] 500 MG PO SCH (08:00)
[2018-04-13] MEDS: ACETAMINOPHEN 325 MG TABLET PO PRN (08:03)
[2018-04-13] MEDS: AZITHROMYCIN 250 MG TABLET PO SCH (08:04)
[2018-04-13] MEDS: DOCUSATE SODIUM 100 MG CAPSULE PO PRN (08:05)
[2018-04-13] MEDS: BENZONATATE 100 MG CAPSULE PO PRN (08:05)
[2018-04-13] MEDS: PANTOPRAZOLE 40 MG TABLET PO SCH (08:06)
[2018-04-13] MEDS: SERTRALINE 50 MG TABLET PO SCH (08:07)
[2018-04-13] MEDS: BUDESONIDE/FORMOTEROL 160-4.5 INHALER 6 GM INH SCH ×2 (08:07→21:57)
[2018-04-13] MEDS: ASPIRIN EC 81 MG TABLET PO SCH (08:07)
[2018-04-13] MEDS ORDERED: NON-FORMULARY MEDICATION (Omeprazole [Prilosec] 20 MG) PO SCH (09:00)
[2018-04-13] MEDS ORDERED: ATORVASTATIN 10 MG TABLET PO SCH (19:00)
[2018-04-13] MEDS: TOPIRAMATE 100 MG TABLET PO SCH (21:55)
[2018-04-13] MEDS ORDERED: ZALEPLON 5 MG CAPSULE PO ONE (22:42)
[2018-04-14] MEDS: ALBUTEROL/IPRATROPIUM 3 ML NEB RESP TX SCH ×7 (00:45→23:48)
[2018-04-14] MEDS: ENOXAPARIN 30 MG/0.3 ML SYRINGE SUBCUT SCH ×2 (03:04→20:22)
[2018-04-14 04:32] LABS: Basophils % 0.1 % (0.0-0.8); Hematocrit 37.3 VOL% (35.7-47.0); Hemoglobin 11.7 GM/DL (12.0-16.0); Immature Granulocytes % 1.7 %; Immature Granulocytes Absolute 0.15 #; Lymphocytes # 1.2 10*3/uL (1.4-4.0); Mean Corpuscular HGB Conc 31.4 GM/DL (32-36); Mean Corpuscular Hemoglobin 33 PG (27-34); Mean Corpuscular Volume 106.6 FL (87-102); Mean Platelet Volume 10.9 FL (9.6-12.0); Monocytes # 0.2 10*3/uL (0.11-0.8); Neutrophils # 7.4 10*3/uL (1.4-7.4); Neutrophils % 83.2 % (38.7-73.9); Platelet Count 174 T/CUMM (130-400); Red Cell Distribution Width 14.1 % (9.3-17.3); White Blood Count 8.9 T/CUMM (4-12)
[2018-04-14 04:58] LABS: Calcium 8.9 MG/DL (8.5-10.1); Osmolality,Calculated 285.4 MOS/KG (273-304)
[2018-04-14] MEDS: methylPREDNISolone SOD SUC 40 MG/1 ML VIAL IV SCH ×2 (06:55→12:20)
[2018-04-14] MEDS: BENZONATATE 100 MG CAPSULE PO PRN (09:33)
[2018-04-14] MEDS: AZITHROMYCIN 250 MG TABLET PO SCH (09:33)
[2018-04-14] MEDS: ASPIRIN EC 81 MG TABLET PO SCH (09:33)
[2018-04-14] MEDS: SERTRALINE 50 MG TABLET PO SCH (09:34)
[2018-04-14] MEDS: BUDESONIDE/FORMOTEROL 160-4.5 INHALER 6 GM INH SCH ×2 (09:34→20:22)
[2018-04-14] MEDS: PANTOPRAZOLE 40 MG TABLET PO SCH (09:34)
[2018-04-14] MEDS: ACETAMINOPHEN 325 MG TABLET PO PRN (15:54)
[2018-04-14] MEDS: TOPIRAMATE 100 MG TABLET PO SCH (20:22)
[2018-04-14] MEDS: ATORVASTATIN 10 MG TABLET PO SCH (20:22)
[2018-04-15] MEDS: methylPREDNISolone SOD SUC 40 MG/1 ML VIAL IV SCH ×2 (00:47→14:33)
[2018-04-15 02:52] LABS: Basophils % 0.1 % (0.0-0.8); Hemoglobin 11.3 GM/DL (12.0-16.0); Immature Granulocytes % 1.4 %; Immature Granulocytes Absolute 0.17 #; Lymphocytes # 1.2 10*3/uL (1.4-4.0); Lymphocytes % 10.3 % (21.3-54.2); Mean Corpuscular HGB Conc 31.4 GM/DL (32-36); Mean Corpuscular Hemoglobin 33 PG (27-34); Mean Corpuscular Volume 106.5 FL (87-102); Mean Platelet Volume 10.7 FL (9.6-12.0); Monocytes # 0.5 10*3/uL (0.11-0.8); Monocytes % 3.9 % (1.7-12.7); Neutrophils # 9.9 10*3/uL (1.4-7.4); Neutrophils % 84.3 % (38.7-73.9); Platelet Count 166 T/CUMM (130-400); Red Blood Count 3.38 MC/CUMM (3.8-5.5); Red Cell Distribution Width 14.3 % (9.3-17.3); White Blood Count 11.8 T/CUMM (4-12)
[2018-04-15 03:28] LABS: Calcium 8.7 MG/DL (8.5-10.1); Osmolality,Calculated 294.2 MOS/KG (273-304); Potassium 5.6 MMOL/L (3.5-5.1)
[2018-04-15] MEDS: ALBUTEROL/IPRATROPIUM 3 ML NEB RESP TX SCH ×6 (03:46→23:45)
[2018-04-15] MEDS: SERTRALINE 50 MG TABLET PO SCH (14:15)
[2018-04-15] MEDS: BENZONATATE 100 MG CAPSULE PO PRN (14:15)
[2018-04-15] MEDS: PANTOPRAZOLE 40 MG TABLET PO SCH (14:16)
[2018-04-15] MEDS: BUDESONIDE/FORMOTEROL 160-4.5 INHALER 6 GM INH SCH ×2 (14:16→21:13)
[2018-04-15] MEDS: AZITHROMYCIN 250 MG TABLET PO SCH (14:16)
[2018-04-15] MEDS: ASPIRIN EC 81 MG TABLET PO SCH (14:16)
[2018-04-15] MEDS: methylPREDNISolone SOD SUC 125 MG/2 ML VIAL IV SCH ×2 (14:20→21:12)
[2018-04-15] MEDS: MEROPENEM 500 MG in SYRINGE 1 EACH IV SCH (14:39)
[2018-04-15] MEDS: ENOXAPARIN 30 MG/0.3 ML SYRINGE SUBCUT SCH (21:13)
[2018-04-15] MEDS: TOPIRAMATE 100 MG TABLET PO SCH (21:13)
[2018-04-15] MEDS: ATORVASTATIN 10 MG TABLET PO SCH (21:13)
[2018-04-16] MEDS: ALBUTEROL/IPRATROPIUM 3 ML NEB RESP TX SCH ×6 (03:55→23:42)
[2018-04-16] MEDS: methylPREDNISolone SOD SUC 125 MG/2 ML VIAL IV SCH ×3 (06:04→21:54)
[2018-04-16 07:07] LABS: Basophils % 0.1 % (0.0-0.8); Hematocrit 37.4 VOL% (35.7-47.0); Hemoglobin 11.5 GM/DL (12.0-16.0); Immature Granulocytes % 2.2 %; Immature Granulocytes Absolute 0.21 #; Lymphocytes # 0.8 10*3/uL (1.4-4.0); Lymphocytes % 8.5 % (21.3-54.2); Mean Corpuscular HGB Conc 30.7 GM/DL (32-36); Mean Corpuscular Hemoglobin 33 PG (27-34); Mean Corpuscular Volume 108.1 FL (87-102); Mean Platelet Volume 11.1 FL (9.6-12.0); Monocytes # 0.2 10*3/uL (0.11-0.8); Monocytes % 2.3 % (1.7-12.7); NRBC # 0.02 10*3/uL; Neutrophils # 8.5 10*3/uL (1.4-7.4); Neutrophils % 86.9 % (38.7-73.9); Platelet Count 144 T/CUMM (130-400); Red Blood Count 3.46 MC/CUMM (3.8-5.5); Red Cell Distribution Width 14.3 % (9.3-17.3); White Blood Count 9.7 T/CUMM (4-12)
[2018-04-16 07:20] LABS: Calcium 8.2 MG/DL (8.5-10.1); Osmolality,Calculated 292.8 MOS/KG (273-304); Potassium 5.7 MMOL/L (3.5-5.1)
[2018-04-16] MEDS: PANTOPRAZOLE 40 MG TABLET PO SCH (08:46)
[2018-04-16] MEDS: ASPIRIN EC 81 MG TABLET PO SCH (08:46)
[2018-04-16] MEDS: BUDESONIDE/FORMOTEROL 160-4.5 INHALER 6 GM INH SCH ×2 (08:46→21:54)
[2018-04-16] MEDS: AZITHROMYCIN 250 MG TABLET PO SCH (08:46)
[2018-04-16] MEDS: BENZONATATE 100 MG CAPSULE PO PRN (08:46)
[2018-04-16] MEDS: SERTRALINE 50 MG TABLET PO SCH (08:46)
[2018-04-16] MEDS: MEROPENEM 500 MG in SYRINGE 1 EACH IV SCH (17:10)
[2018-04-16] MEDS: TOPIRAMATE 100 MG TABLET PO SCH (21:54)
[2018-04-16] MEDS: hydrOXYzine HCL 25 MG TABLET PO PRN (21:54)
[2018-04-16] MEDS: ENOXAPARIN 30 MG/0.3 ML SYRINGE SUBCUT SCH (21:54)
[2018-04-16] MEDS: ATORVASTATIN 10 MG TABLET PO SCH (21:54)
[2018-04-17] MEDS: ALBUTEROL/IPRATROPIUM 3 ML NEB RESP TX SCH ×6 (03:02→23:58)
[2018-04-17] MEDS: methylPREDNISolone SOD SUC 125 MG/2 ML VIAL IV SCH ×3 (04:30→22:15)
[2018-04-17] MEDS: BUDESONIDE/FORMOTEROL 160-4.5 INHALER 6 GM INH SCH ×2 (09:12→20:56)
[2018-04-17] MEDS: AZITHROMYCIN 250 MG TABLET PO SCH (09:12)
[2018-04-17] MEDS: ASPIRIN EC 81 MG TABLET PO SCH (09:12)
[2018-04-17] MEDS: PANTOPRAZOLE 40 MG TABLET PO SCH (09:12)
[2018-04-17] MEDS: SERTRALINE 50 MG TABLET PO SCH (09:12)
[2018-04-17] MEDS: MEROPENEM 500 MG in SYRINGE 1 EACH IV SCH (17:39)
[2018-04-17] MEDS: TOPIRAMATE 100 MG TABLET PO SCH (20:56)
[2018-04-17] MEDS: ATORVASTATIN 10 MG TABLET PO SCH (20:56)
[2018-04-17] MEDS: ENOXAPARIN 30 MG/0.3 ML SYRINGE SUBCUT SCH (20:56)
[2018-04-17] MEDS: hydrOXYzine HCL 25 MG TABLET PO PRN (20:56)
[2018-04-18] MEDS: ALBUTEROL/IPRATROPIUM 3 ML NEB RESP TX SCH ×6 (03:52→23:22)
[2018-04-18] MEDS: methylPREDNISolone SOD SUC 125 MG/2 ML VIAL IV SCH ×3 (05:26→21:43)
[2018-04-18] MEDS: BUDESONIDE/FORMOTEROL 160-4.5 INHALER 6 GM INH SCH ×2 (08:59→21:43)
[2018-04-18] MEDS: ASPIRIN EC 81 MG TABLET PO SCH (08:59)
[2018-04-18] MEDS: PANTOPRAZOLE 40 MG TABLET PO SCH (08:59)
[2018-04-18] MEDS: SERTRALINE 50 MG TABLET PO SCH (08:59)
[2018-04-18] MEDS: AZITHROMYCIN 250 MG TABLET PO SCH (08:59)
[2018-04-18] MEDS: MEROPENEM 500 MG in SYRINGE 1 EACH IV SCH (16:36)
[2018-04-18] MEDS: TOPIRAMATE 100 MG TABLET PO SCH (21:43)
[2018-04-18] MEDS: ATORVASTATIN 10 MG TABLET PO SCH (21:43)
[2018-04-18] MEDS: ENOXAPARIN 30 MG/0.3 ML SYRINGE SUBCUT SCH (21:44)
[2018-04-19] MEDS: ALBUTEROL/IPRATROPIUM 3 ML NEB RESP TX SCH ×5 (03:35→20:58)
[2018-04-19] MEDS: methylPREDNISolone SOD SUC 125 MG/2 ML VIAL IV SCH ×2 (05:24→15:57)
[2018-04-19] MEDS: PANTOPRAZOLE 40 MG TABLET PO SCH (15:14)
[2018-04-19] MEDS: SERTRALINE 50 MG TABLET PO SCH (15:14)
[2018-04-19] MEDS: AZITHROMYCIN 250 MG TABLET PO SCH (15:14)
[2018-04-19] MEDS: ASPIRIN EC 81 MG TABLET PO SCH (15:14)
[2018-04-19] MEDS: BUDESONIDE/FORMOTEROL 160-4.5 INHALER 6 GM INH SCH ×2 (15:15→21:19)
[2018-04-19] MEDS: ENOXAPARIN 30 MG/0.3 ML SYRINGE SUBCUT SCH (21:18)
[2018-04-19] MEDS: CEFUROXIME 250 MG TABLET PO SCH (21:18)
[2018-04-19] MEDS: ATORVASTATIN 10 MG TABLET PO SCH (21:18)
[2018-04-19] MEDS: predniSONE 20 MG TABLET PO SCH (21:18)
[2018-04-19] MEDS: TOPIRAMATE 100 MG TABLET PO SCH (21:18)
[2018-04-20] MEDS: ALBUTEROL/IPRATROPIUM 3 ML NEB RESP TX SCH ×7 (00:25→22:33)
[2018-04-20] MEDS ORDERED: ZALEPLON 5 MG CAPSULE PO PRN (08:59)
[2018-04-20] MEDS: ASPIRIN EC 81 MG TABLET PO SCH (09:00)
[2018-04-20] MEDS: predniSONE 20 MG TABLET PO SCH ×2 (09:00→21:16)
[2018-04-20] MEDS: SERTRALINE 50 MG TABLET PO SCH (09:00)
[2018-04-20] MEDS: CEFUROXIME 250 MG TABLET PO SCH ×2 (09:00→21:15)
[2018-04-20] MEDS: PANTOPRAZOLE 40 MG TABLET PO SCH (09:01)
[2018-04-20] MEDS: DOCUSATE SODIUM 100 MG CAPSULE PO PRN ×2 (09:01→21:15)
[2018-04-20] MEDS: BUDESONIDE/FORMOTEROL 160-4.5 INHALER 6 GM INH SCH ×2 (09:01→21:25)
[2018-04-20] MEDS: BENZONATATE 100 MG CAPSULE PO PRN ×2 (09:01→21:15)
[2018-04-20] MEDS: hydrOXYzine HCL 25 MG TABLET PO PRN (21:15)
[2018-04-20] MEDS: ATORVASTATIN 10 MG TABLET PO SCH (21:15)
[2018-04-20] MEDS: TOPIRAMATE 100 MG TABLET PO SCH (21:16)
[2018-04-20] MEDS: ENOXAPARIN 30 MG/0.3 ML SYRINGE SUBCUT SCH (21:16)
[2018-04-21] MEDS: ACETAMINOPHEN 325 MG TABLET PO PRN (02:14)
[2018-04-21] MEDS: ALBUTEROL/IPRATROPIUM 3 ML NEB RESP TX SCH ×3 (02:29→11:00)
[2018-04-21] MEDS: CEFUROXIME 250 MG TABLET PO SCH (09:24)
[2018-04-21] MEDS: ASPIRIN EC 81 MG TABLET PO SCH (09:25)
[2018-04-21] MEDS: predniSONE 20 MG TABLET PO SCH (09:25)
[2018-04-21] MEDS: PANTOPRAZOLE 40 MG TABLET PO SCH (09:25)
[2018-04-21] MEDS: BUDESONIDE/FORMOTEROL 160-4.5 INHALER 6 GM INH SCH (09:25)
[2018-04-21] MEDS: SERTRALINE 50 MG TABLET PO SCH (09:25)
[2018-04-21 13:03] VITALS: BP 95/48
== END 2018-04-21 14:05 | disposition home or self-care (01) | DRG 202 ==
LOC: N.ED 21:06 → N.EDINP 21:06 → SUATTDRO 04-13 00:53 → N.5E 04-13 01:25 → SUATTDRO 04-15 13:10
PROVIDERS: ADMIT Internal Medicine; ATTEND Internal Medicine

== ENCOUNTER 2022-03-25 13:30 | Observation (INO) ==
[2022-03-25 14:25] LABS: Basophils % 0.6 % (0.0-0.8); Eosinophils # 0.3 10*3/uL (0.0-0.87); Eosinophils % 6.4 % (0.00-10.9); Hematocrit 37.9 VOL% (35.7-47.0); Hemoglobin 11.8 GM/DL (12.0-16.0); Immature Granulocytes % 0.2 %; Immature Granulocytes Absolute 0.01 #; Lymphocytes # 1.8 10*3/uL (1.4-4.0); Lymphocytes % 34.1 % (21.3-54.2); Mean Corpuscular HGB Conc 31.1 GM/DL (32-36); Mean Corpuscular Volume 104.4 FL (87-102); Mean Platelet Volume 10.2 FL (9.6-12.0); Monocytes # 0.4 10*3/uL (0.11-0.8); Monocytes % 6.9 % (1.7-12.7); Neutrophils % 51.8 % (38.7-73.9); Platelet Count 153 T/CUMM (130-400); Red Blood Count 3.63 MC/CUMM (3.8-5.5); Red Cell Distribution Width 13.7 % (9.3-17.3); White Blood Count 5.3 T/CUMM (4-12)
[2022-03-25 14:38] LABS: PT Patient Result 11.2 SECS (10.1-12.1)
[2022-03-25 14:54] LABS: Albumin 2.9 G/DL (3.4-5.0); Bilirubin,Total 0.4 MG/DL (0.20-1.00); Calcium 9.6 MG/DL (8.5-10.1); Osmolality,Calculated 269.1 MOS/KG (273-304); Potassium 4.1 MMOL/L (3.5-5.1); Total Protein 7.4 G/DL (6.4-8.2)
[2022-03-25] MEDS ORDERED: ONDANSETRON 4 MG/2 ML VIAL IV PRN (15:58)
[2022-03-25] MEDS ORDERED: ACETAMINOPHEN 325 MG TABLET PO PRN (15:58)
[2022-03-25] MEDS ORDERED: SIMETHICONE CHEW 125 MG TABLET PO PRN (15:58)
[2022-03-25] MEDS ORDERED: DOCUSATE SODIUM 100 MG CAPSULE PO PRN (15:58)
[2022-03-25] MEDS ORDERED: GLUCAGON 1 MG VIAL IM PRN (15:58)
[2022-03-25] MEDS ORDERED: [UNRECOGNIZED DRUG - OTHER] PO SCH (16:00)
[2022-03-25] MEDS ORDERED: LORazepam 2 MG/1 ML VIAL IV PRN (16:01)
[2022-03-25] MEDS ORDERED: oxyCODONE/ACETAMINOPHEN 5-325 MG TABLET PO PRN (16:09)
[2022-03-25] MEDS ORDERED: DEXTROSE 10% 250 ML BAG IV PRN (16:10)
[2022-03-25] MEDS ORDERED: SODIUM CHLORIDE 0.9% 500 ML IV ONE (16:19)
[2022-03-25] MEDS: LANTHANUM 1000 MG PO SCH (17:59)
[2022-03-25] MEDS: INSULIN LISPRO 100 UNIT/ML SUBCUT SCH ×2 (17:59→21:15)
[2022-03-25] MEDS ORDERED: NON-FORMULARY MEDICATION (Omeprazole 20 mg capsule,delayed release(DR/EC)) PO SCH (21:00)
[2022-03-25] MEDS: TOPIRAMATE 200 MG TABLET PO SCH (21:15)
[2022-03-25] MEDS: GABAPENTIN 300 MG CAPSULE PO SCH (21:15)
[2022-03-25] MEDS: MIDODRINE 5 MG TABLET PO SCH (21:15)
[2022-03-25] MEDS: ATORVASTATIN 10 MG TABLET PO SCH (21:15)
[2022-03-25] MEDS: HEPARIN 5,000 UNIT/1 ML VIAL SUBCUT SCH (21:15)
[2022-03-26] MEDS: LEVOTHYROXINE 25 MCG TABLET PO SCH (05:45)
[2022-03-26 06:51] LABS: Basophils % 0.5 % (0.0-0.8); Eosinophils # 0.2 10*3/uL (0.0-0.87); Eosinophils % 5.3 % (0.00-10.9); Hemoglobin 10.5 GM/DL (12.0-16.0); Immature Granulocytes % 0.2 %; Immature Granulocytes Absolute 0.01 #; Lymphocytes # 2.2 10*3/uL (1.4-4.0); Mean Corpuscular Volume 110.8 FL (87-102); Mean Platelet Volume 10.3 FL (9.6-12.0); Monocytes # 0.3 10*3/uL (0.11-0.8); Monocytes % 7.6 % (1.7-12.7); Neutrophils % 36.4 % (38.7-73.9); Platelet Count 124 T/CUMM (130-400); Red Blood Count 3.16 MC/CUMM (3.8-5.5); Red Cell Distribution Width 14.2 % (9.3-17.3); White Blood Count 4.4 T/CUMM (4-12)
[2022-03-26 07:00] LABS: Band Neutrophils 1 % (0-10); Eosinophils 3 % (0-10); Lymphocytes 55 % (20-55); Phosphorous 5.1 MG/DL (2.5-4.9); Total Cells Counted 100; Uric Acid 3.8 MG/DL (2.6-6.0)
[2022-03-26 07:01] LABS: Macrocytosis Slight; Platelet Estimate Adequate
[2022-03-26 07:11] LABS: Alanine Aminotransferase 12 U/L (13-56); Albumin 2.7 G/DL (3.4-5.0); Alkaline Phosphatase 109 U/L (45-117); Aspartate Amino Transferase 15 U/L (0-37); Bilirubin,Total < 0.39 MG/DL (0.20-1.00); Blood Urea Nitrogen 22 MG/DL (7-18); Calcium 9.2 MG/DL (8.5-10.1); Carbon Dioxide 23 MMOL/L (21-32); Chloride 103 MMOL/L (98-107); Cholesterol 174 MG/DL (50-200); Glucose 78 MG/DL (74-106); HDL Cholesterol 83 MG/DL (40-60); Osmolality,Calculated 269.2 MOS/KG (273-304); Potassium 4.1 MMOL/L (3.5-5.1); Sodium 134 MMOL/L (136-145); Total Protein 6.7 G/DL (6.4-8.2); Triglycerides 61 MG/DL (2-150); VLDL Cholesterol 12.2 MG/DL
[2022-03-26] MEDS: INSULIN LISPRO 100 UNIT/ML SUBCUT SCH ×4 (08:41→21:27)
[2022-03-26] MEDS: LANTHANUM 1000 MG PO SCH ×3 (08:41→16:54)
[2022-03-26] MEDS: levETIRAcetam 500 MG TABLET PO SCH ×2 (08:44→21:27)
[2022-03-26] MEDS: GABAPENTIN 300 MG CAPSULE PO SCH ×2 (08:44→21:27)
[2022-03-26] MEDS: MIDODRINE 5 MG TABLET PO SCH ×2 (08:45→21:27)
[2022-03-26] MEDS: HEPARIN 5,000 UNIT/1 ML VIAL SUBCUT SCH ×2 (08:45→21:31)
[2022-03-26] MEDS: TOPIRAMATE 200 MG TABLET PO SCH ×2 (08:46→21:27)
[2022-03-26] MEDS: PANTOPRAZOLE 40 MG TABLET PO SCH (08:46)
[2022-03-26] MEDS: ATORVASTATIN 10 MG TABLET PO SCH (21:27)
[2022-03-26] MEDS ORDERED: SODIUM CHLORIDE 0.9% 500 ML IV ONE (21:30)
[2022-03-27] MEDS: LEVOTHYROXINE 25 MCG TABLET PO SCH (06:32)
[2022-03-27] MEDS: INSULIN LISPRO 100 UNIT/ML SUBCUT SCH ×2 (08:05→12:41)
[2022-03-27] MEDS: HEPARIN 5,000 UNIT/1 ML VIAL SUBCUT SCH (08:05)
[2022-03-27] MEDS: LANTHANUM 1000 MG PO SCH ×2 (08:05→12:42)
[2022-03-27] MEDS: MIDODRINE 5 MG TABLET PO SCH (08:07)
[2022-03-27] MEDS: PANTOPRAZOLE 40 MG TABLET PO SCH (08:07)
[2022-03-27] MEDS: levETIRAcetam 500 MG TABLET PO SCH (08:07)
[2022-03-27] MEDS: GABAPENTIN 300 MG CAPSULE PO SCH (08:07)
[2022-03-27] MEDS: TOPIRAMATE 200 MG TABLET PO SCH (08:07)
[2022-03-27] MEDS ORDERED: HEPARIN 10,000 UNIT/10 ML VIAL IV PRN (10:21)
[2022-03-27 11:37] LABS: Hepatitis B Surface Ag Quant < 0.10 Index; Hepatitis B Surface Ag Result Non-Reactive (NonReactive); Hepatitis C Virus Ab Quant 0.03 Index; Hepatitis C Virus Ab Result Non-Reactive (NonReactive)
[2022-03-27 12:33] LABS: Hepatitis B Core IgM Quant 0.66 Index
[2022-03-27 17:17] VITALS: BP 89/45
== END 2022-03-27 19:25 | disposition home health service (06) ==
LOC: EDUNIT# → EDBD → SUATTDRO → N.EDINP 13:30 → N.ED 13:30 → N.2W 16:40
PROVIDERS: ADMIT Internal Medicine; ATTEND Internal Medicine